=== PATIENT | male | born 1980 | race African-American/Black ===

== ENCOUNTER 2016-08-22 11:39 | Emergency (ER) | payer OTHER ==
[~2016-08-22] VITALS: Ht 162.6 cm; Wt 82.1 kg
[~2016-08-22 11:39] MED LIST: CETI10TA84 PO; MTR/600 PO
[2016-08-22 11:42] VITALS: Ht 162.6 cm; Wt 82.1 kg
--- NOTE | 2016-08-22 12:56 | EMERGENCY ROOM VISIT NOTE ---
History First contact with patient: 12:41 Chief Complaint: CHEST PAIN Stated Complaint: CHEST PAINS, LOWER BACK ACHE Nursing Triage Summary: chest pains in the center of the chest for the past couple of days. The other day I was climbing stairs and felt sob and had some chest tightness. I dont really have pain now, but the pain comes when I bend or move certian ways." History of Present Illness The patient is a 35 year old male from [facility] who presents to the Emergency Room with complaints of chest pain since Monday (5 days ago). He reports the pain has been in the center of his chest, worse with certain movements such as sleeping, getting out of the car, or reaching for something. He describes it as sharp but only coming on during certain movements (where he moves his arms and tries to pop it). He tried using Icy/Hot to make the pain better but it did not improve. He denies a family hx of early cardiac . He is an ex-smoker, and smoked about 1ppd intermittently over 2 years but has now stopped. He reports the pain is currently a 3/10. He reports he has been working out more than usual , doing bicep lifts with free weights so he stopped lifting and that didn't change the pain at all. He was admitted November 2015 for pericarditis. His pain at that time was more sudden onset but sounded similar. He reports it feels similar, but does not have the same shortness of breath he had experienced prior. Review of Systems See HPI for pertinent positives & negatives. A total of 10 systems reviewed and were otherwise negative. Past Medical/Surgical History Medical Problems: (1) Pericarditis Surgical Problems: (1) H/O umbilical hernia repair Social History Smoking Status: Former Smoker Drug Use: none Housing Status: lives with family Current/Historical Medications Scheduled Multivitamin (Multivitamin), 1 TAB PO DAILY Allergies Coded Allergies: Shrimp (Verified Allergy, Severe, THROAT SWELLING, 08/22/16) Amoxicillin (Verified Allergy, Intermediate, HIVES, 08/22/16) Physical Exam Vital Signs Date Time Temp Pulse Resp B/P Pulse Ox O2 Delivery O2 Flow Rate FiO2 08/22/16 15:30 36.6 73 18 112/77 97 08/22/16 15:29 73 18 112/77 97 Room Air 08/22/16 13:41 77 18 114/79 97 Room Air 08/22/16 13:41 98 Room Air 08/22/16 13:13 93 08/22/16 11:42 36.6 83 18 124/79 98 Room Air Physical Exam GENERAL: Awake, alert, well-appearing, in no acute distress HENT: Normocephalic, atraumatic. Oropharynx unremarkable. EYES: Normal conjunctiva. Sclera non-icteric. NECK: Supple. No nuchal rigidity. FROM. No JVD. RESPIRATORY: Clear to auscultation. CARDIAC: Regular rate, normal rhythm. Extremities warm and well perfused. Pulses equal. ABDOMEN: Soft, non-distended. No tenderness to palpation. No rebound or guarding. No masses. RECTAL: Deferred. MUSCULOSKELETAL: Chest examination reveals no tenderness. The back is symmetrical on inspection without obvious abnormality. There is no CVA tenderness to palpation. No joint edema. LOWER EXTREMITIES: Calves are equal size bilaterally and non-tender. No edema. No discoloration. NEURO: Normal sensorium. No sensory or motor deficits noted. SKIN: No rash or jaundice noted. Medical Decision & Procedures Laboratory Results 08/22/16 13:15 Red Blood Count 5.00, Mean Corpuscular Volume 87.4, Mean Corpuscular Hemoglobin 30.0, Mean Corpuscular Hemoglobin Concent 34.3, Mean Platelet Volume 10.5, Neutrophils (%) (Auto) 49.3, Lymphocytes (%) (Auto) 40.7, Monocytes (%) (Auto) 8.1, Eosinophils (%) (Auto) 1.5, Basophils (%) (Auto) 0.2, Neutrophils # (Auto) 2.87, Lymphocytes # (Auto) 2.37, Monocytes # (Auto) 0.47, Eosinophils # (Auto) 0.09, Basophils # (Auto) 0.01 08/22/16 13:15 Test 08/22/16 13:15 08/22/16 13:22 08/22/16 14:50 White Blood Count 5.82 K/uL (4.8-10.8) Red Blood Count 5.00 M/uL (4.7-6.1) Hemoglobin 15.0 g/dL (14.0-18.0) Hematocrit 43.7 % (42-52) Mean Corpuscular Volume 87.4 fL (80-100) Mean Corpuscular Hemoglobin 30.0 pg (25-34) Mean Corpuscular Hemoglobin Concent 34.3 g/dl (32-36) Platelet Count 198 K/uL (130-400) Mean Platelet Volume 10.5 fL (7.4-10.4) Neutrophils (%) (Auto) 49.3 % Lymphocytes (%) (Auto) 40.7 % Monocytes (%) (Auto) 8.1 % Eosinophils (%) (Auto) 1.5 % Basophils (%) (Auto) 0.2 % Neutrophils # (Auto) 2.87 K/uL (1.4-6.5) Lymphocytes # (Auto) 2.37 K/uL (1.2-3.4) Monocytes # (Auto) 0.47 K/uL (0.11-0.59) Eosinophils # (Auto) 0.09 K/uL (0-0.5) Basophils # (Auto) 0.01 K/uL (0-0.2) RDW Standard Deviation 39.8 fL (36.4-46.3) RDW Coefficient of Variation 12.4 % (11.5-14.5) Immature Granulocyte % (Auto) 0.2 % Immature Granulocyte # (Auto) 0.01 K/uL (0.00-0.02) Erythrocyte Sedimentation Rate 10 mm/hr (0-14) Anion Gap 11.0 mmol/L (3-11) Est Creatinine Clear Calc Drug Dose 89.8 ml/min Estimated GFR () 99.6 Estimated GFR (Non- 85.9 BUN/Creatinine Ratio 11.3 (10-20) Calcium Level 9.2 mg/dl (8.5-10.1) Total Bilirubin 1.1 mg/dl (0.2-1) Aspartate Amino Transf (AST/SGOT) 27 U/L (15-37) Alanine Aminotransferase (ALT/SGPT) 39 U/L (12-78) Alkaline Phosphatase 65 U/L (45-117) Total Creatine Kinase 514 U/L (39-308) Total Protein 7.3 gm/dl (6.4-8.2) Albumin 3.8 gm/dl (3.4-5.0) Globulin 3.5 gm/dl (2.5-4.0) Albumin/Globulin Ratio 1.1 (0.9-2) Lipase 137 U/L (73-393) Bedside D-Dimer 158 ng/mlFEU (0-450) FD-Tvv-U-Type Natriuretic Peptide < 15 pg/ml (0-450) Bedside Troponin I 0.000 ng/ml (0-0.045) Medications Administered Medications (Trade) Dose Ordered Sig/Lilly Route Start Time Stop Time Status Last Admin Dose Admin Ketorolac Tromethamine (Toradol Inj) 30 mg TODAY@1330 IV 08/22/16 13:30 08/22/16 14:30 DC 08/22/16 13:38 30 MG Ibuprofen (Motrin Tab) 600 mg NOW STAT PO 08/22/16 13:11 08/22/16 13:12 DC 08/22/16 13:38 600 MG Al Hydroxide/Mg Hydroxide (Maalox Susp) 30 ml STK-MED ONCE .ROUTE 08/22/16 15:19 08/22/16 15:21 DC 08/22/16 15:28 30 ML Lidocaine HCl (Viscous Lidocaine 2% Soln) 20 ml STK-MED ONCE .ROUTE 08/22/16 15:19 08/22/16 15:21 DC 08/22/16 15:28 10 ML Procedure CHEST ONE VIEW PORTABLE CLINICAL HISTORY: Chest pain. COMPARISON STUDY: No previous studies for comparison. FINDINGS: Lung volumes are normal. No consolidation is identified. There is no evidence of pulmonary edema. Cardiac size is normal. Mediastinal contours are normal. No pneumothorax or pleural effusion is present. IMPRESSION: No acute cardiopulmonary findings. Electronically signed by: Corey Ray M.D. 08/22/2016 1:21 PM ED Course 12:50: I evaluated the patient in Room C9. He was present with his and daughter. 1:00: I ordered a CBC, CMP, ESR, Troponin. His EKG was reviewed and similar when compared to his previous EKGs. 2:00: I reviewed the patient again. He reported the pain is different to his pericarditis admission back then, as he doesn't have any issues breathing. He reports the pain is only with outstretching his arms and demonstrated this. I reviewed his labs with him which were all unremarkable, including a POC D-Dimer , Troponin, BNP, and CBC. I will get a repeat Troponin. 2:20: His repeat Troponin was negative. He felt better. He was deemed stable for discharge and left in good condition. Medical Decision 35 yo M with history of pericarditis who reports 5 day history of central epigastric intermittent chest pain, worse with certain movements such as stretching his shoulders/arms. Differential includes musculoskeletal, [place], pleurisy, GERD, and pericarditis. He had an IV placed and labs drawn. His labs were unremarkable. His POC Troponin, D-Dimer, and BNP were all negative. He had a follow up POC Troponin 90 minutes later which was also negative. He did have a mild CK elevation (500's) but reported he had been lifting weights earlier this week. He was discharged home in good condition and advised to follow up with his PCP. Impression Primary Impression: Chest wall pain Departure Information Dispostion Home / Self-Care Condition GOOD Referrals Bib Garrido M.D. (PCP) Patient Instructions My [facility] Resident Tracking Resident Involvement: Resident Care Provided Care Provided: Adult ED
[2016-08-22] MEDS ORDERED: IBUPROFEN 600 MG TAB PO STA ×2 (12:59→13:11)
--- NOTE | 2016-08-22 13:22 | DIAGNOSTIC IMAGING REPORT ---
CHEST ONE VIEW PORTABLE CLINICAL HISTORY: Chest pain. COMPARISON STUDY: No previous studies for comparison. FINDINGS: Lung volumes are normal. No consolidation is identified. There is no evidence of pulmonary edema. Cardiac size is normal. Mediastinal contours are normal. No pneumothorax or pleural effusion is present. IMPRESSION: No acute cardiopulmonary findings. Electronically signed by: Corey Ray M.D. 08/22/2016 1:21 PM Dictated Date/Time: 08/22/2016 1:20 PM
[2016-08-22 13:26] LABS: BASO % 0.2 %; BASO ABS # 0.01 K/uL (0-0.2); COMPLETE YES; EOS % 1.5 %; HEMATOCRIT 43.7 % (42-52); IG% 0.2 %; LYMPH % 40.7 %; LYMPH ABS # 2.37 K/uL (1.2-3.4); MEAN CELL VOLUME 87.4 fL (80-100); MEAN CORPUSCULAR HGB CONC 34.3 g/dl (32-36); MEAN PLATELET VOLUME 10.5 fL (7.4-10.4); MONO % 8.1 %; NEUT % 49.3 %; PLATELET COUNT 198 K/uL (130-400); WHITE BLOOD COUNT 5.82 K/uL (4.8-10.8)
[2016-08-22] MEDS ORDERED: KETOROLAC TROMETHAMINE 30 MG/ML VIAL IV SCH (13:30)
[2016-08-22 13:41] VITALS: O2SAT 98
[2016-08-22 13:44] LABS: POINT OF CARE PRO-BNP < 15 pg/ml (0-450)
[2016-08-22 13:45] LABS: BUN/CREATININE RATIO 11.3 (10-20); CALCIUM 9.2 mg/dl (8.5-10.1); CREATININE 1.1 mg/dl (0.60-1.40); POTASSIUM 3.8 mmol/L (3.5-5.1)
[2016-08-22 13:48] LABS: ALB/GLOB RATIO 1.1 (0.9-2)
[2016-08-22] MEDS ORDERED: GI COCKTAIL PO STA (14:07)
[2016-08-22] MEDS ORDERED: ALUMINUM/MAGNESIUM SUSP 18 ML, LIDOCAINE HCL 2% VISCOUS SOLN 6 ML, BARCODE IDENTIFIER 1 EA PO STA ×2 (14:55)
[2016-08-22] MEDS ORDERED: ALUMINUM/MAGNESIUM SUSP 30 ML UDC ONE (15:19)
[2016-08-22] MEDS ORDERED: LIDOCAINE HCL 2% VISC SOLN 20 ML UDC ONE (15:19)
[2016-08-22 15:30] VITALS: BP 112/77; PULSE 73; TEMP 36.6; O2SAT 97
[2016-08-22] MEDS ORDERED: MULT-506 PO (22:49)
--- NOTE | 2016-08-23 20:04 | EMERGENCY ROOM VISIT NOTE ---
ED Visit Note First contact with patient: 12:40 Resident Physician Supervision Note: I interviewed and examined the patient. Discussed with Dr. Webb and agree with findings and plan as documented in the note. Any exceptions or clarifications are listed here: This patient was evaluated and appeared to be in no significant distress. Laboratory work was reviewed. D-dimer is negative, troponins are negative 2. Laboratory work is fairly unrevealing otherwise. EKG reveals no evidence of acute ischemic change. Patient will be discharged to follow-up with the PCP. Diagnosis: Chest wall pain Documented By: Sweta Byrne
== END 2016-08-22 15:32 | disposition home or self-care (01) ==
LOC: C.EDB 11:41
DX: R07.89 Other chest pain (principal); I31.9 Disease of pericardium, unspecified; Z87.891 Personal history of nicotine dependence; Z88.1 Allergy status to other antibiotic agents; Z91.018 Allergy to other foods; Z98.890 Other specified postprocedural states

== ENCOUNTER → 2016-12-25 | Outpatient (CLI) | payer OTHER ==
[~2016-12-25] MED LIST changes: -CETI10TA84 PO; -MTR/600 PO; +MULT-506 PO
== END | disposition home or self-care (01) ==
LOC: C.LAB 04:31
DX: Z02.83 Encounter for blood-alcohol and blood-drug test (principal)

== ENCOUNTER 2020-10-29 16:02 | Inpatient (IN) ==
[2020-10-29] MEDS: HYDROmorphone INJ 0.5 MG/0.5 ML SYR IV PRN ×4 (16:40→20:44)
[2020-10-29] MEDS ORDERED: SODIUM CHLORIDE 0.9% 500 ML IV STA (16:45)
[2020-10-29] MEDS ORDERED: ONDANSETRON INJ 2 MG/ML 2 ML VIAL IV STA (16:45)
[2020-10-29] MEDS ORDERED: SODIUM CHLORIDE 0.9% 1000ML 1,000 ML IV STA (16:45)
--- NOTE | 2020-10-29 16:47 | Emergency Department Note ---
Impression & Plan Abdominal pain, RUQ, Acute pain of right shoulder, Lesion of liver, Abnormal liver enzymes ED Provider Note INFORMANT: Patient ED PROVIDER(S): Baldemar Carl MD CHIEF COMPLAINT: Shoulder pain PLAN: Disposition: Admitted Condition: Good Outpatient prescription management: none Referral: None MEDICAL DECISION MAKING: Patient presented because of right shoulder pain and right upper quadrant abdominal pain. He has an abnormal liver and elevated liver functions on prior record review. He is pending biopsy. He had significant pain referring to the right shoulder. He had a CT scan of the chest abdomen pelvis ordered. He was given IV Dilaudid and Zofran for symptom control. On reassessment he was feeling better. He still had discomfort. The patient had an unremarkable CBC a nd chemistry panel. His LFTs were more elevated than in recent past. He underwent the CT imaging. No significant findings noted in the chest. The patient was found to have stable but very abnormal liver findings. Lymph nodes normal but unchanged. Small amount of ascites noted. On reassessment he was 12 in pain. He was given additional Dilaudid. I did consult with gastroenterology, Dr. Tapia. He recommended admission for pain control, MRCP, and for the biopsies to be completed tomorrow. Patient was in agreement with this. He had a consultation placed with Dr. Fine of internal medicine. The patient was evaluated and admitted for further management. Triage Nursing notes reviewed and agree them. Vital Signs: reviewed and remarkable for no significant abnormalities Differential diagnosis: Hemorrhage, PE, pneumonia, pancreatitis, biliary pathology, Appendicitis,infections, diverticulitis, UTI, obstruction, mesenteric ischemia, aortic pathology, inflammatory bowel disease, renal colic, PUD, hernia, volvulus, constipation, as well as other pathologies. Diagnostics interpreted by me: ECG: Rate: 97 Rhythm:Normal sinus [place]:Normal QRS:Normal ST segements:No elevation or depression Other:No PACs or PVCs Cardiac Monitoring:Cardiac monitoring ordered by me: The patient was placed on continuous cardiac monitoring and observed. It revealed a normal sinus rhythm at 100 beats per minute without ectopy or evidence of dysrhythmia. Imaging studies: CT scan of the chest abdomen pelvis reveals no evidence of pulmonary embolus. Subsegmental arteries not well visualized. There is abnormalities of the liver architecture as well as surrounding lymph node. No other acute findings noted. Refer to the EMR for further details. HPI: The patient is a 39 year old male who presents to the Emergency Room with complaints of right shoulder pain. This started at 1500 today and is sharp. The patient also notes the following associated symptoms, RUQ abdominal pain. The patient has found no relieving factors. Current pain is rated as 10/10. Patient is supposed to have a chest CT performed as well as a liver and node biopsy by CT tomorrow. Pt denies LOC, headache, fevers, chills, diaphoresis, visual changes, neck pain, chest pain, breathing difficulties, nausea, vomiting, back pain, melena, hematochezia, urinary symptoms, numbness, weakness, lymphadenopathy, rash, or other complaints. ROS: See above HPI for pertinent positives & negatives. A total of 10 systems reviewed and were otherwise negative. PAST MEDICAL HISTORY:See Below , hepatitis C PAST SURGICAL HISTORY:See Below, umbilical hernia FAMILY HISTORY:See Below SOCIAL HISTORY:See Below, employed. No tobacco HOME MEDICATIONS:See Below ALLERGIES:See Below VITALS:See Below PHYSICAL EXAMINATION: GENERAL: Awake, alert, very uncomfortable-appearing, in mild distress HENT: Normocephalic, atraumatic. Oropharynx unremarkable. EYES: Normal conjunctiva. Sclera non-icteric. NECK: Inspection normal. Non-tender. Supple. No nuchal rigidity. FROM. No masses. RESPIRATORY: Clear to auscultation. No wheezes. No rales. Normal respiratory effort. CARDIAC: Normal rate. Normal rhythm. No murmurs. No rubs. Extremities warm and well perfused. Pulses equal. No JVD. GI: Soft, non-distended. Right upper quadrant tenderness to palpation. No rebound or guarding. No masses. RECTAL: Deferred. MUSCULOSKELETAL: Atraumatic. Chest examination reveals no tenderness. The back is symmetrical on inspection without obvious abnormality. There is no CVA tenderness to palpation. No joint edema. LOWER EXTREMITIES: Calves are equal size bilaterally and non-tender. No edema. No discoloration. NEURO: Normal sensorium. No sensory or motor deficits noted. SKIN: No rash or jaundice noted. Baldemar Carl MD Past Med/Surg History Medical History GERD (gastroesophageal reflux disease) Hx of hepatitis C DX OVER 22 YEARS AGO Hyperlipidemia no medications Surgical History H/O umbilical hernia repair History of colonoscopy Family History Father Hypertension Denies family history of Ovarian cancer Prostate cancer Myocardial infarction Breast cancer Colonic polyp Social History Smoking Status: Former smoker Second Hand Exposure: No; Hx Alcohol Use: No Preferred Language: [place] Communication Ability: Effective Visual Impairment: No Limitations Hearing Ability: Normal Innovation Analyst Required: No Beliefs That Will Affect Care: None marital status: Current Living Situation: Family Current Living Situation Comment: AND 2 CHILDREN current occupational status: employed Feels Safe at Home: Yes Childhood Exposure to Second-Hand Smoke: No Dental Care, Regularly: Yes Physical Activity Frequency: Daily Seatbelt Use: always Assistive Devices: Glasses Allergies Allergies Allergy/AdvReac Type Severity Reaction Status Date / Time shrimp Allergy Severe THROAT Verified 10/27/20 10:57 SWELLING amoxicillin Allergy Intermediate HIVES Verified 10/27/20 10:57 cefuroxime [From Ceftin] Allergy Intermediate RASH/BLACK Verified 10/29/20 08:10 SPOTS ON SKIN sulfamethoxazole Allergy Intermediate RASH/BLACK Verified 10/29/20 08:10 [From Septra] SPOTS ON SKIN trimethoprim [From Septra] Allergy Intermediate RASH/BLACK Verified 10/29/20 08:10 SPOTS ON SKIN unknown antibiotic Allergy Intermediate black & Uncoded 10/29/20 08:10 blue splotches on arms Home Meds Home Medications Medication Instructions Recorded Confirmed omeprazole 40 mg PO QAM 10/23/20 10/29/20 Results & Data (ED) Vital Signs Vital Signs - 24 hr 10/29/20 16:07 10/29/20 17:30 10/29/20 17:37 Temperature 36.3 C L Temperature Source Temporal Artery Scan Pulse Rate 100 H 94 H 95 H Pulse Rate from SpO2 Sensor 94 H 95 H Respiratory Rate 16 22 Blood Pressure 129/83 121/76 Blood Pressure Mean 98 91 Pulse Oximetry 99 94 95 Oxygen Delivery Method Room Air Sepsis Recent Fever Within 48 Hours No Sepsis New/Unexplained Change in Mental Status N/A Sepsis Action Taken by Nursing No Action Required 10/29/20 18:00 10/29/20 18:01 10/29/20 18:30 Temperature Temperature Source Pulse Rate 100 H 101 H 102 H Pulse Rate from SpO2 Sensor 100 H 102 H 100 H Respiratory Rate 20 19 18 Blood Pressure 122/74 108/65 Blood Pressure Mean 90 79 Pulse Oximetry 96 94 94 Oxygen Delivery Method Sepsis Recent Fever Within 48 Hours Sepsis New/Unexplained Change in Mental Status Sepsis Action Taken by Nursing 10/29/20 18:31 10/29/20 19:00 10/29/20 19:01 Temperature Temperature Source Pulse Rate 103 H 102 H 103 H Pulse Rate from SpO2 Sensor 103 H 102 H 102 H Respiratory Rate 16 18 18 Blood Pressure 113/64 Blood Pressure Mean 80 Pulse Oximetry 93 95 94 Oxygen Delivery Method Sepsis Recent Fever Within 48 Hours Sepsis New/Unexplained Change in Mental Status Sepsis Action Taken by Nursing 10/29/20 19:30 10/29/20 19:31 10/29/20 20:00 Temperature Temperature Source Pulse Rate 100 H 102 H 105 H Pulse Rate from SpO2 Sensor 100 H 102 H 107 H Respiratory Rate 5 L 1 L 18 Blood Pressure 118/75 119/75 Blood Pressure Mean 89 89 Pulse Oximetry 94 92 93 Oxygen Delivery Method Sepsis Recent Fever Within 48 Hours Sepsis New/Unexplained Change in Mental Status Sepsis Action Taken by Nursing 10/29/20 20:01 10/29/20 20:30 10/29/20 20:31 Temperature Temperature Source Pulse Rate 105 H 107 H 104 H Pulse Rate from SpO2 Sensor 105 H 106 H 104 H Respiratory Rate 17 13 3 L Blood Pressure 112/76 Blood Pressure Mean 88 Pulse Oximetry 93 95 95 Oxygen Delivery Method Sepsis Recent Fever Within 48 Hours Sepsis New/Unexplained Change in Mental Status Sepsis Action Taken by Nursing 10/29/20 21:00 10/29/20 21:01 10/29/20 21:30 Temperature Temperature Source Pulse Rate 103 H 105 H 103 H Pulse Rate from SpO2 Sensor 104 H 105 H 102 H Respiratory Rate 31 H 34 H 17 Blood Pressure 122/74 117/74 Blood Pressure Mean 90 88 Pulse Oximetry 92 92 95 Oxygen Delivery Method Sepsis Recent Fever Within 48 Hours Sepsis New/Unexplained Change in Mental Status Sepsis Action Taken by Nursing 10/29/20 21:31 10/29/20 22:00 10/29/20 22:01 Temperature Temperature Source Pulse Rate 107 H 103 H 100 H Pulse Rate from SpO2 Sensor 106 H 104 H 101 H Respiratory Rate 14 32 H 22 Blood Pressure 115/75 Blood Pressure Mean 88 Pulse Oximetry 96 93 93 Oxygen Delivery Method Sepsis Recent Fever Within 48 Hours Sepsis New/Unexplained Change in Mental Status Sepsis Action Taken by Nursing Laboratory Data Result diagrams: 10/29/20 17:00 10/29/20 17:00 Lab Results 10/29/20 10/29/20 10/29/20 Range/Units 17:00 17:00 20:40 WBC 8.86 (4.8-10.8) K/uL RBC 4.98 (4.7-6.1) M/uL Hgb 13.8 L (14.0-18.0) g/dL Hct 42.0 (42-52) % MCV 84.3 (80-100) fL MCH 27.7 (25-34) pg MCHC 32.9 (32-36) g/dL RDW Std Deviation 44.7 (36.4-46.3) fL RDW Coeff of Jw 14.5 (11.5-14.5) % Plt Count 428 H (130-400) K/uL MPV 10.2 (7.4-10.4) fL Immature Gran % (Auto) 0.2 % Neut % (Auto) 68.6 % Lymph % (Auto) 19.0 % [place] % (Auto) 10.8 % Eos % (Auto) 1.2 % Baso % (Auto) 0.2 % Neut # (Auto) 6.07 (1.4-6.5) K/uL Lymph # (Auto) 1.68 (1.2-3.4) K/uL [place] # (Auto) 0.96 H (0.11-0.59) K/uL Eos # (Auto) 0.11 (0-0.5) K/uL Baso # (Auto) 0.02 (0-0.2) K/uL Immature Gran # (Auto) 0.02 (0.00-0.02) K/uL Sodium 138 (136-145) mmol/L Potassium 3.6 (3.5-5.1) mmol/L Chloride 103 (98-107) mmol/L Carbon Dioxide 27 (21-32) mmol/L Anion Gap 8.0 (3-11) BUN 11 (7-18) mg/dl Creatinine 1.04 (0.6-1.4) mg/dl Est Cr Clr Drug Dosing 88.3 ml/min Est GFR ( Amer) 103.6 Est GFR (Non-Af Amer) 89.4 BUN/Creatinine Ratio 10.7 (10-20) Glucose 79 (70-99) mg/dl Calcium 9.5 (8.5-10.1) mg/dl Total Bilirubin 1.6 H (0.2-1) mg/dl AST 808 H (15-37) U/L ALT 180 H (12-78) U/L Alkaline Phosphatase 330 H (45-117) U/L Troponin I < 0.015 (0-0.045) ng/ml Total Protein 7.5 (6.4-8.2) gm/dl Albumin 3.0 L (3.4-5.0) gm/dl Globulin 4.5 H (2.5-4.0) gm/dl Albumin/Globulin Ratio 0.7 L (0.9-2) Lipase 95 (73-393) U/L COVID-19 Eval Order CovFluRsv at [facility] SARS-CoV-2 (PCR) (Negative) Influenza Type A (PCR) (Neg) Influenza Type B (PCR) (Neg) RSV (RT-PCR) (Neg) 10/29/20 Range/Units 20:40 WBC (4.8-10.8) K/uL RBC (4.7-6.1) M/uL Hgb (14.0-18.0) g/dL Hct (42-52) % MCV (80-100) fL MCH (25-34) pg MCHC (32-36) g/dL RDW Std Deviation (36.4-46.3) fL RDW Coeff of Jw (11.5-14.5) % Plt Count (130-400) K/uL MPV (7.4-10.4) fL Immature Gran % (Auto) % Neut % (Auto) % Lymph % (Auto) % [place] % (Auto) % Eos % (Auto) % Baso % (Auto) % Neut # (Auto) (1.4-6.5) K/uL Lymph # (Auto) (1.2-3.4) K/uL [place] # (Auto) (0.11-0.59) K/uL Eos # (Auto) (0-0.5) K/uL Baso # (Auto) (0-0.2) K/uL Immature Gran # (Auto) (0.00-0.02) K/uL Sodium (136-145) mmol/L Potassium (3.5-5.1) mmol/L Chloride (98-107) mmol/L Carbon Dioxide (21-32) mmol/L Anion Gap (3-11) BUN (7-18) mg/dl Creatinine (0.6-1.4) mg/dl Est Cr Clr Drug Dosing ml/min Est GFR ( Amer) Est GFR (Non-Af Amer) BUN/Creatinine Ratio (10-20) Glucose (70-99) mg/dl Calcium (8.5-10.1) mg/dl Total Bilirubin (0.2-1) mg/dl AST (15-37) U/L ALT (12-78) U/L Alkaline Phosphatase (45-117) U/L Troponin I (0-0.045) ng/ml Total Protein (6.4-8.2) gm/dl Albumin (3.4-5.0) gm/dl Globulin (2.5-4.0) gm/dl Albumin/Globulin Ratio (0.9-2) Lipase (73-393) U/L COVID-19 Eval Order SARS-CoV-2 (PCR) NEGATIVE (Negative) Influenza Type A (PCR) Negative (Neg) Influenza Type B (PCR) Negative (Neg) RSV (RT-PCR) Negative (Neg) Administered Medications Hydromorphone HCl (Hydromorphone Inj 0.5 Mg/0.5 Ml Syr) 0.5 mg IV Q15M PRN PRN Reason: Pain Stop: 11/12/20 16:44 Last Admin: 10/29/20 20:44 Dose: 0.5 mg Documented by: [id number] Admin: 10/29/20 19:31 Dose: 0.5 mg Documented by: [id number] Admin: 10/29/20 17:41 Dose: 0.5 mg Documented by: [id number] Admin: 10/29/20 16:40 Dose: 0.5 mg Documented by: [id number] Sodium Chloride (Nss 1000ml) 1,000 mls @ 125 mls/hr IV .Q8H STA Stop: 10/30/20 00:44 Last Infusion: 10/29/20 19:23 Dose: 0 mls/hr Documented by: [id number] Admin: 10/29/20 16:55 Dose: 125 mls/hr Documented by: [id number] Discontinued Medications Sodium Chloride (Nss) 500 mls @ 999 mls/hr IV .Q31M STA Stop: 10/29/20 17:15 Last Infusion: 10/29/20 19:22 Dose: 0 mls/hr Documented by: [id number] Admin: 10/29/20 17:40 Dose: 999 mls/hr Documented by: [id number] Ioversol (Optiray 350 500ml) 120 ml IV ONCE ONE Stop: 10/29/20 17:51 Last Admin: 10/29/20 17:50 Dose: 120 ml Documented by: [id number] Ondansetron HCl (Ondansetron Inj 2 Mg/Ml 2 Ml Vial) 4 mg IV NOW STA Stop: 10/29/20 16:46 Last Admin: 10/29/20 17:40 Dose: 4 mg Documented by: [id number] Imaging Data Radiologist's Impression: Chest X-Ray 10/29/20 16:48 SINGLE VIEW CHEST CLINICAL HISTORY: Atypical chest pain. Right upper quadrant abdominal pain. FINDINGS: An AP, portable, upright chest radiograph is compared to study dated 11/02/2018. The cardiomediastinal silhouette is unremarkable. The lungs and pleural spaces are clear. No pneumothorax is seen. The bony thorax is grossly intact. IMPRESSION: No active disease in the chest. ACT 112: Negative or not required by law. Electronically signed by: Harsh Viveros M.D. 10/29/2020 5:06 PM Abdomen/Pelvis CT 10/29/20 17:12 CT ANGIOGRAM OF THE CHEST; CT SCAN OF THE ABDOMEN AND PELVIS WITH IV CONTRAST CLINICAL HISTORY: Atypical chest pain. Right upper quadrant abdominal pain. COMPARISON STUDY: Chest x-ray dated 10/29/2020. Abdominal CT dated 10/21/2020. TECHNIQUE: Following the IV administration of 120 of Optiray 350, CT angiogram of the chest is performed from the upper abdomen to the thoracic inlet utilizing the pulmonary embolus protocol. Images are reviewed in the axial, sagittal, coronal planes. 3-D MIPS images are created and assessed. Subsequently, CT scan of the abdomen and pelvis was performed from the lung bases to the proximal femora. Images are reviewed in the axial, sagittal, and coronal planes. IV contrast was administered without complication. A dose lowering technique was utilized adhering to the principles of ALARA. There is suboptimal contrast opacification of the pulmonary arteries, as well as motion artifact.. CT DOSE: 621.49 mGy.cm FINDINGS: CHEST: Thyroid: Imaged portions of the thyroid gland are normal in size and attenuation. Thoracic aorta: The thoracic aorta is normal in caliber and demonstrates standard 3-vessel arch anatomy. No dissection is seen. Pulmonary vasculature: The pulmonary trunk is normal in caliber. There are no filling defects identified in the main or lobar pulmonary arteries to indicate pulmonary embolus. The segmental and subsegmental branches are not well assessed. Heart: The heart is normal in size and configuration, and without pericardial effusion. Lungs and pleural spaces: Evaluation of the lung parenchyma is degraded by motion artifact. No airspace consolidation or pleural effusion is identified. There is mild dependent atelectasis. The trachea and central airways are clear. Mediastinum: There is no mediastinal lymphadenopathy. [place]: Clear. Axillae: There is no axillary lymphadenopathy. Bony thorax: No lytic or blastic lesions are identified. ABDOMEN AND PELVIS: Liver: The contrast-enhanced liver is mildly enlarged measuring over 18 cm in length. The liver is markedly heterogeneous in attenuation there is nodularity of the hepatic surface contour. The liver is infiltrated by numerous low- attenuation mass lesions. There is no arterial hypervascularity. Confluent mass lesions in the left lobe measure up to 14 cm in aggregate dimension. Numerous additional smaller lesions are seen throughout both lobes. There is no intrahe patic biliary ductal dilatation. Hepatic veins and portal veins are patent. Gallbladder: Unremarkable. Spleen: Normal in size and attenuation. Pancreas: Unremarkable. Adrenal glands: Unremarkable. Kidneys: The contrast enhanced kidneys are normal in size and without hyd ronephrosis. The kidneys enhance symmetrically. Abdominal vasculature: The abdominal aorta is normal in course and caliber. Bowel: There is no bowel obstruction. The appendix is normal as visualized. Peritoneum: No intraperitoneal free air is identified. There is trace perihepatic and perisplenic ascites. There is also a small volume of free fluid in the pelvis. Lymphadenopathy: There is upper abdominal lymphadenopathy. A celiac node on image #128 measures 4.4 x 2.3 cm. A peripancreatic node on image #154 measures 3.0 x 1.7 cm. No retroperitoneal, mesenteric, pelvic sidewall, or inguinal a denopathy is identified. Pelvic viscera: The bladder, prostate, and seminal vesicles are normal as visualized. Skeletal structures: No lytic or blastic lesions are seen. IMPRESSION: 1. There is suboptimal contrast opacification of the pulmonary arteries. 2. There is no evidence of central pulmonary embolus in the main or lobar pulmonary arteries. The segmental and subsegmental branches are not adequately assessed. 3. There is no airspace consolidation or pleural effusion. 4. Findings of diffuse hepatic metastatic disease have not significantly changed from 10/21/2020. 5. The liver is mildly enlarged and markedly heterogeneous with nodularity of the surface contour. This likely represents pseudocirrhotic change related to neoplasm. 6. Upper abdominal lymphadenopathy is unchanged and consistent with matthias metastasis. 7. Small volume abdominopelvic ascites. 8. Additional findings as above. ACT 112: Negative or not required by law. Electronically signed by: Harsh Viveros M.D. 10/29/2020 6:20 PM Chest CTA 10/29/20 17:12 CT ANGIOGRAM OF THE CHEST; CT SCAN OF THE ABDOMEN AND PELVIS WITH IV CONTRAST CLINICAL HISTORY: Atypical chest pain. Right upper quadrant abdominal pain. COMPARISON STUDY: Chest x-ray dated 10/29/2020. Abdominal CT dated 10/21/2020. TECHNIQUE: Following the IV administration of 120 of Optiray 350, CT angiogram of the chest is performed from the upper abdomen to the thoracic inlet utilizing the pulmonary embolus protocol. Images are reviewed in the axial, sagittal, coronal planes. 3-D MIPS images are created and assessed. Subsequently, CT scan of the abdomen and pelvis was performed from the lung bases to the proximal femora. Images are reviewed in the axial, sagittal, and coronal planes. IV contr ast was administered without complication. A dose lowering technique was utilized adhering to the principles of ALARA. There is suboptimal contrast opacification of the pulmonary arteries, as well as motion artifact.. CT DOSE: 621.49 mGy.cm FINDINGS: CHEST: Thyroid: Imaged portions of the thyroid gland are normal in size and attenuation. Thoracic aorta: The thoracic aorta is normal in caliber and demonstrates standard 3-vessel arch anatomy. No dissection is seen. Pulmonary vasculature: The pulmonary trunk is normal in caliber. There are no filling defects identified in the main or lobar pulmonary arteries to indicate pulmonary embolus. The segmental and subsegmental branches are not well assessed. Heart: The heart is normal in size and configuration, and without pericardial effusion. Lungs and pleural spaces: Evaluation of the lung parenchyma is degraded by motion artifact. No airspace consolidation or pleural effusion is identified. There is mild dependent atelectasis. The trachea and central airways are clear. Mediastinum: There is no mediastinal lymphadenopathy. [place]: Clear. Axillae: There is no axillary lymphadenopathy. Bony thorax: No lytic or blastic lesions are identified. ABDOMEN AND PELVIS: Liver: The contrast-enhanced liver is mildly enlarged measuring over 18 cm in length. The liver is markedly heterogeneous in attenuation there is nodularity of the hepatic surface contour. The liver is infiltrated by numerous low- attenuation mass lesions. There is no arterial hypervascularity. Confluent mass lesions in the left lobe measure up to 14 cm in aggregate dimension. Numerous additional smaller lesions are seen throughout both lobes. There is no intrahepatic biliary ductal dilatation. Hepatic veins and portal veins are patent. Gallbladder: Unremarkable. Spleen: Normal in size and attenuation. Pancreas: Unremarkable. Adrenal glands: Unremarkable. Kidneys: The contrast enhanced kidneys are normal in size and without hydronephrosis. The kidneys enhance symmetrically. Abdominal vasculature: The abdominal aorta is normal in course and caliber. Bowel: There is no bowel obstruction. The appendix is normal as visualized. Peritoneum: No intraperitoneal free air is identified. There is trace perihepatic and perisplenic ascites. There is also a small volume of free fluid in the pelvis. Lymphadenopathy: There is upper abdominal lymphadenopathy. A celiac node on image #128 measures 4.4 x 2.3 cm. A peripancreatic node on image #154 measures 3.0 x 1.7 cm. No retroperitoneal, mesenteric, pelvic sidewall, or inguinal adenopathy is identified. Pelvic viscera: The bladder, prostate, and seminal vesicles are normal as visualized. Skeletal structures: No lytic or blastic lesions are seen. IMPRESSION: 1. There is suboptimal contrast opacification of the pulmonary arteries. 2. There is no evidence of central pulmonary embolus in the main or lobar pulmonary arteries. The segmental and subsegmental branches are not adequately assessed. 3. There is no airspace consolidation or pleural effusion. 4. Findings of diffuse hepatic metastatic disease have not significantly changed from 10/21/2020. 5. The liver is mildly enlarged and markedly heterogeneous with nodularity of the surface contour. This likely represents pseudocirrhotic change related to neoplasm. 6. Upper abdominal lymphadenopathy is unchanged and consistent with matthias metastasis. 7. Small volume abdominopelvic ascites. 8. Additional findings as above. ACT 112: Negative or not required by law. Electronically signed by: Harsh Viveros M.D. 10/29/2020 6:20 PM Discharge Plan Visit Data Chief Complaint: Shoulder Pain Stated Complaint: SHARP PAIN IN SIDE, SHOULDER & NECK ED Provider: Baldemar Carl Discharge Problem: Abdominal pain, RUQ, Acute pain of right shoulder, Lesion of liver, Abnormal liver enzymes Forms Stand Alone Forms: [facility] [employer] Prescriptions Prescriptions: No Action omeprazole 40 mg capsule,delayed release(DR/EC) 40 mg PO QAM RF: 0
--- NOTE | 2020-10-29 17:07 | XRay Report ---
SINGLE VIEW CHEST CLINICAL HISTORY: Atypical chest pain. Right upper quadrant abdominal pain. FINDINGS: An AP, portable, upright chest radiograph is compared to study dated 11/02/2018. The cardiom ediastinal silhouette is unremarkable. The lungs and pleural spaces are clear. No pneumothorax is see n. The bony thorax is grossly intact. IMPRESSION: No active disease in the chest. ACT 112: Negative or not required by law. Electronically signed by: Harsh Viveros M.D. 10/29/2020 5:06 PM
[2020-10-29 17:11] LABS: Basophils # (auto) 0.02 K/uL (0-0.2); Basophils % (auto) 0.2 %; Eosinophils # (auto) 0.11 K/uL (0-0.5); Eosinophils % (auto) 1.2 %; Hemoglobin 13.8 g/dL (14.0-18.0); Immature Granulocytes # (auto) 0.02 K/uL (0.00-0.02); Immature Granulocytes % (auto) 0.2 %; Lymphocytes # (auto) 1.68 K/uL (1.2-3.4); Mean Corpuscular Hemoglobin 27.7 pg (25-34); Mean Corpuscular Hgb Conc 32.9 g/dL (32-36); Mean Corpuscular Volume 84.3 fL (80-100); Mean Platelet Volume 10.2 fL (7.4-10.4); Monocytes # (auto) 0.96 K/uL (0.11-0.59); Monocytes % (auto) 10.8 %; Neutrophils # (auto) 6.07 K/uL (1.4-6.5); Neutrophils % (auto) 68.6 %; Platelet Count 428 K/uL (130-400); RDW Coefficient of Variation 14.5 % (11.5-14.5); RDW Standard Deviation 44.7 fL (36.4-46.3); Red Blood Count 4.98 M/uL (4.7-6.1); White Blood Count 8.86 K/uL (4.8-10.8)
[2020-10-29 17:35] LABS: Alanine Aminotransferase 180 U/L (12-78); Aspartate Aminotransferase 808 U/L (15-37); BUN Creatinine Ratio 10.7 (10-20); Blood Urea Nitrogen 11 mg/dl (7-18); Calcium 9.5 mg/dl (8.5-10.1); Carbon Dioxide 27 mmol/L (21-32); Chloride 103 mmol/L (98-107); Creatinine Clr Calc Pharmacy 88.3 ml/min; Est GFR (African American) 103.6; Est GFR (Non-African American) 89.4; Glucose 79 mg/dl (70-99); Lipase 95 U/L (73-393); Potassium 3.6 mmol/L (3.5-5.1); Sodium 138 mmol/L (136-145)
[2020-10-29 17:40] LABS: Albumin Globulin Ratio 0.7 (0.9-2); Alkaline Phosphatase 330 U/L (45-117); Bilirubin,Total 1.6 mg/dl (0.2-1); Globulin 4.5 gm/dl (2.5-4.0); Total Protein 7.5 gm/dl (6.4-8.2); Troponin I < 0.015 ng/ml (0-0.045)
[2020-10-29] MEDS ORDERED: OPTIRAY 350 500ml IV ONE (17:50)
--- NOTE | 2020-10-29 18:22 | CT Scan Report ---
CT ANGIOGRAM OF THE CHEST; CT SCAN OF THE ABDOMEN AND PELVIS WITH IV CONTRAST CLINICAL HISTORY: Atypical chest pain. Right upper quadrant abdominal pain. COMPARISON STUDY: Chest x-ray dated 10/29/2020. Abdominal CT dated 10/21/2020. TECHNIQUE: Following the IV administration of 120 of Optiray 350, CT angiogram of the chest is perfor med from the upper abdomen to the thoracic inlet utilizing the pulmonary embolus protocol. Images are reviewed in the axial, sagittal, coronal planes. 3-D MIPS images are created and assessed. Subsequen tly, CT scan of the abdomen and pelvis was performed from the lung bases to the proximal femora. Imag es are reviewed in the axial, sagittal, and coronal planes. IV contrast was administered without comp lication. A dose lowering technique was utilized adhering to the principles of ALARA. There is subopt imal contrast opacification of the pulmonary arteries, as well as motion artifact.. CT DOSE: 621.49 mGy.cm FINDINGS: CHEST: Thyroid: Imaged portions of the thyroid gland are normal in size and attenuation. Thoracic aorta: The thoracic aorta is normal in caliber and demonstrates standard 3-vessel arch anato my. No dissection is seen. Pulmonary vasculature: The pulmonary trunk is normal in caliber. There are no filling defects identif ied in the main or lobar pulmonary arteries to indicate pulmonary embolus. The segmental and subsegme ntal branches are not well assessed. Heart: The heart is normal in size and configuration, and without pericardial effusion. Lungs and pleural spaces: Evaluation of the lung parenchyma is degraded by motion artifact. No airspa ce consolidation or pleural effusion is identified. There is mild dependent atelectasis. The trachea and central airways are clear. Mediastinum: There is no mediastinal lymphadenopathy. Leidy: Clear. Axillae: There is no axillary lymphadenopathy. Bony thorax: No lytic or blastic lesions are identified. ABDOMEN AND PELVIS: Liver: The contrast-enhanced liver is mildly enlarged measuring over 18 cm in length. The liver is ma rkedly heterogeneous in attenuation there is nodularity of the hepatic surface contour. The liver is infiltrated by numerous low-attenuation mass lesions. There is no arterial hypervascularity. Confluen t mass lesions in the left lobe measure up to 14 cm in aggregate dimension. Numerous additional small er lesions are seen throughout both lobes. There is no intrahepatic biliary ductal dilatation. Hepati c veins and portal veins are patent. Gallbladder: Unremarkable. Spleen: Normal in size and attenuation. Pancreas: Unremarkable. Adrenal glands: Unremarkable. Kidneys: The contrast enhanced kidneys are normal in size and without hydronephrosis. The kidneys enh ance symmetrically. Abdominal vasculature: The abdominal aorta is normal in course and caliber. Bowel: There is no bowel obstruction. The appendix is normal as visualized. Peritoneum: No intraperitoneal free air is identified. There is trace perihepatic and perisplenic asc ites. There is also a small volume of free fluid in the pelvis. Lymphadenopathy: There is upper abdominal lymphadenopathy. A celiac node on image #128 measures 4.4 x 2.3 cm. A peripancreatic node on image #154 measures 3.0 x 1.7 cm. No retroperitoneal, mesenteric, p elvic sidewall, or inguinal adenopathy is identified. Pelvic viscera: The bladder, prostate, and seminal vesicles are normal as visualized. Skeletal structures: No lytic or blastic lesions are seen. IMPRESSION: 1. There is suboptimal contrast opacification of the pulmonary arteries. 2. There is no evidence of central pulmonary embolus in the main or lobar pulmonary arteries. The seg mental and subsegmental branches are not adequately assessed. 3. There is no airspace consolidation or pleural effusion. 4. Findings of diffuse hepatic metastatic disease have not significantly changed from 10/21/2020. 5. The liver is mildly enlarged and markedly heterogeneous with nodularity of the surface contour. Th is likely represents pseudocirrhotic change related to neoplasm. 6. Upper abdominal lymphadenopathy is unchanged and consistent with matthias metastasis. 7. Small volume abdominopelvic ascites. 8. Additional findings as above. ACT 112: Negative or not required by law. Electronically signed by: Harsh Viveros M.D. 10/29/2020 6:20 PM
[2020-10-29 21:46] LABS: Influenza A virus by PCR Negative (Neg); Influenza B virus by PCR Negative (Neg); RSV by PCR Negative (Neg); SARS CoV2 RNA(COVID-19) InHosp NEGATIVE (Negative)
--- NOTE | 2020-10-29 22:53 | History & Physical Report ---
Date of Service October 29, 2020 Assessment & Plan (1) Acute pain of right shoulder: 39 yo male with diffuse hepatic lesions most concerning for malignant process with metastases. Patient is in the midst of diagnostic workup and staging. Presents to the ER today with worsening RUQ and right shoulder/neck pain. Imaging redemonstrates hepatic lesions with matthias involvement. CTA was negative for PE, however, study suboptimal. Suspect right shoulder pain is referred from expanding liver lesions -Admit to medical floor -Dilaudid 0.5mg IV q 2 hours - can increase as needed to optimize pain control -Colace PRN Present on Admission?: Yes (2) Lesion of liver: Concern for malignancy with lymph node involvement. ?Primary HCC vs Germ cell primary vs metastatic lesions. Patient has no family history of malignancy and no identifiable risk factors for malignancy (possible history of HCV discussed below). Patient endorses frequent headache mostly at the end of the day. -Check testicular ultrasound as recommended by Oncology -Check hCG with AM labs -Check LDH with AM labs -Check MRI brain -Will keep patient NPO after midnight and hold chemoprophylaxis for DVT for possible liver biopsy in AM. He was to have this performed tomorrow with Dr. Patton in the outpatient setting. Hopefully will be able to complete this study inpatient -Check MRCP -Check INR with AM labs Present on Admission?: Yes (3) Hx of hepatitis C: Patient reports that appx 23 years ago his Aunt was in a bad accident and family members were asked to donate blood. He was told at that time that he had HCV. He reports drinking dandelion tea and using Milk Thistle supplements and having negative followup testing Patient had an acute hepatitis panel performed on 10/16/20 which is negative Present on Admission?: Yes (4) Abnormal liver enzymes: Patient with worsening LFTs, mixed hepatocellular and obstructive pattern. Concern for progression of lesions. He is afebrile, HD stable, non-toxic in appearance. No leukocytosis to suggest infectious process. -Check INR -Repeat LFTs in AM -Check MRCP as above Present on Admission?: Yes (5) GERD (gastroesophageal reflux disease): Chronic -Hold Omeprazole for now F/E/N - Heplock. Electrolytes WNL. NPO for now Ppx - SCDs. Code - Full Dispo - Admit to medical Present on Admission?: Yes History of Present Illness Chief Complaint: Right shoulder pain, abdominal pain Primary Care Provider: Vasquez Che MD Mr. Bray is a 39yo male presenting with right shoulder pain and RUQ abdominal discomfort. Patient was born and raised in [facility] - lived in an urban environment. He has been living in the for over 10 years. Until recently he had been in very good health, working out frequently and training for a marathon. In August 2020 he developed upper abdominal pain and fullness as well as gas and bloating. He had an abdominal ultrasound and liver studies ordered by his PCP on 10/13/20 which was suggestive of malignant lesions of the liver, possibly representing metastatic disease. He had a colonoscopy performed on 10/28/20 which was normal. He was evaluated by Dr. Matos from ematology/Oncology on 10/28/20. Patient was scheduled to have upper GI EUS with biopsy of liver lesion and nodes performed tomorrow outpatient. He presents today to [facility] ER with complaint of severe right shoulder and neck discomfort as well as RUQ and right posterior rib discomfort. Pain is pleuritic in nature and began acutely around 15:00 while the patient was at work. He denies chest pain, palpitations, SOB although he does endorse short/shallow breathing due to pain. He has ongoing abdominal pain but denies nausea/vomiting/diarrhea or constipation. He endorses poor appetite as well as significant weight loss of appx 35# over the past month. He also reports a frequent headache that occurs in the evening. He does not wake with a ORTEGA and denies seizure, numbness/tingling/weakness or other focal deficits. Abd US 10/16/20: Lobular and heterogenous liver which may contain scattered lesions. Three is also mild periportal LAD. Labs 10/16/20: GQM=481, YF=503. EBV Capsig IgG > 750 and EBV Nuclear Antigen Ab [address] CT Abdomen 10/21/20: Liver is infiltrated by numerous large mass lesions. Should be considered neoplasm until proven otherwise, and metastatic disease is favored over a primary hepatic neoplasm. Colorectal carcinoma is a strong consideration. Enlarged and centrally necrotic upper abdominal lymph nodes consistent with metastatic disease. Labs 10/21/20: CEA <0.5 AFP = [id number] Colonoscopy 10/27/20: Normal terminal ileum and colon. No polyps or masses. Non-bleeding internal hemorrhoids. ER Course: Dilaudid 0.5mg IV x 4. Zofran 4mg IV, NSS x 1500mL Allergies Allergy/AdvReac Type Severity Reaction Status Date / Time shrimp Allergy Severe THROAT Verified 10/27/20 10:57 SWELLING amoxicillin Allergy Intermediate HIVES Verified 10/27/20 10:57 cefuroxime [From Ceftin] Allergy Intermediate RASH/BLACK Verified 10/29/20 08:10 SPOTS ON SKIN sulfamethoxazole Allergy Intermediate RASH/BLACK Verified 10/29/20 08:10 [From Septra] SPOTS ON SKIN trimethoprim [From Septra] Allergy Intermediate RASH/BLACK Verified 10/29/20 08:10 SPOTS ON SKIN unknown antibiotic Allergy Intermediate black & Uncoded 10/29/20 08:10 blue splotches on arms Home Medications Medication Instructions Recorded Confirmed Type omeprazole 40 mg PO QA 10/23/20 10/29/20 History Past Med/Surg History Medical History GERD (gastroesophageal reflux disease) Hx of hepatitis C DX OVER 22 YEARS AGO Hyperlipidemia no medications Surgical History H/O umbilical hernia repair History of colonoscopy Family History Father Hypertension Denies family history of Ovarian cancer Prostate cancer Myocardial infarction Breast cancer Colonic polyp Social History Smoking Status: Former smoker Second Hand Exposure: No; Hx Alcohol Use: No Preferred Language: Barbadian Communication Ability: Effective Visual Impairment: No Limitations Hearing Ability: Normal Fire Medic Required: No Beliefs That Will Affect Care: None marital status: Current Living Situation: Family Current Living Situation Comment: AND 2 CHILDREN current occupational status: employed Feels Safe at Home: Yes Childhood Exposure to Second-Hand Smoke: No Dental Care, Regularly: Yes Physical Activity Frequency: Daily Seatbelt Use: always Assistive Devices: Glasses Review of Systems Review of Systems: All systems reviewed & are unremarkable except as noted in HPI & below Physical Exam Physical Exam: General: patient resting, slightly uncomfortable due to RUQ pain, NAD, non-toxic in appearance, AA&O x 4 Skin: warm, dry, intact, no rashes or lesions HEENT: NC/AT, PERRL, EOMI, anicteric sclera, conjunctiva without injection, external ear normal to inspection and nontender, nares patent, moist mucus membranes, dentition intact, no oropharyngeal lesions, neck supple, trachea midline, no LAD, no thyromegaly, no JVD Heart: +S1/S2, regular, no m/r/g Lungs: equal air entry bilaterally, no rales/rhonchi/wheezes Abd: +BS, soft, tender in RUQ, palpable liver margin, enlarged to percussion Ext: warm, 2+ pulses in UE/LE bilaterally, no clubbing/cyanosis or edema Neuro: nonfocal, patient AA&O x 4, speech intact, no facial droop, moving all extremities on command with equal strength 5/5 Results & Data Results & Data ([facility]) Vital Signs (Past 12 Hours) Vital Signs Temp Pulse Resp BP Pulse Ox 10/29/20 22:40 98 H 18 95 10/29/20 22:31 97 H 13 95 10/29/20 22:30 101 H 17 131/71 97 10/29/20 22:20 109 H 18 96 10/29/20 22:10 99 H 31 H 92 10/29/20 22:01 100 H 22 93 10/29/20 22:00 103 H 32 H 115/75 93 10/29/20 21:31 107 H 14 96 10/29/20 21:30 103 H 17 117/74 95 10/29/20 21:01 105 H 34 H 92 10/29/20 21:00 103 H 31 H 122/74 92 10/29/20 20:31 104 H 3 L 95 10/29/20 20:30 107 H 13 112/76 95 10/29/20 20:01 105 H 17 93 10/29/20 20:00 105 H 18 119/75 93 10/29/20 19:31 102 H 1 L 92 10/29/20 19:30 100 H 5 L 118/75 94 10/29/20 19:01 103 H 18 94 10/29/20 19:00 102 H 18 113/64 95 10/29/20 18:31 103 H 16 93 10/29/20 18:30 102 H 18 108/65 94 10/29/20 18:01 101 H 19 94 10/29/20 18:00 100 H 20 122/74 96 10/29/20 17:37 95 H 22 95 10/29/20 17:30 94 H 20 121/76 94 10/29/20 16:07 36.3 C L 100 H 16 129/83 99 Laboratory Results Lab Results 10/29/20 10/29/20 10/29/20 Range/Units 17:00 17:00 20:40 WBC 8.86 (4.8-10.8) K/uL RBC 4.98 (4.7-6.1) M/uL Hgb 13.8 L (14.0-18.0) g/dL Hct 42.0 (42-52) % MCV 84.3 (80-100) fL MCH 27.7 (25-34) pg MCHC 32.9 (32-36) g/dL RDW Std Deviation 44.7 (36.4-46.3) fL RDW Coeff of Jw 14.5 (11.5-14.5) % Plt Count 428 H (130-400) K/uL MPV 10.2 (7.4-10.4) fL Immature Gran % (Auto) 0.2 % Neut % (Auto) 68.6 % Lymph % (Auto) 19.0 % [place] % (Auto) 10.8 % Eos % (Auto) 1.2 % Baso % (Auto) 0.2 % Neut # (Auto) 6.07 (1.4-6.5) K/uL Lymph # (Auto) 1.68 (1.2-3.4) K/uL [place] # (Auto) 0.96 H (0.11-0.59) K/uL Eos # (Auto) 0.11 (0-0.5) K/uL Baso # (Auto) 0.02 (0-0.2) K/uL Immature Gran # (Auto) 0.02 (0.00-0.02) K/uL Sodium 138 (136-145) mmol/L Potassium 3.6 (3.5-5.1) mmol/L Chloride 103 (98-107) mmol/L Carbon Dioxide 27 (21-32) mmol/L Anion Gap 8.0 (3-11) BUN 11 (7-18) mg/dl Creatinine 1.04 (0.6-1.4) mg/dl Est Cr Clr Drug Dosing 88.3 ml/min Est GFR ( Amer) 103.6 Est GFR (Non-Af Amer) 89.4 BUN/Creatinine Ratio 10.7 (10-20) Glucose 79 (70-99) mg/dl Calcium 9.5 (8.5-10.1) mg/dl Total Bilirubin 1.6 H (0.2-1) mg/dl AST 808 H (15-37) U/L ALT 180 H (12-78) U/L Alkaline Phosphatase 330 H (45-117) U/L Troponin I < 0.015 (0-0.045) ng/ml Total Protein 7.5 (6.4-8.2) gm/dl Albumin 3.0 L (3.4-5.0) gm/dl Globulin 4.5 H (2.5-4.0) gm/dl Albumin/Globulin Ratio 0.7 L (0.9-2) Lipase 95 (73-393) U/L COVID-19 Eval Order CovFluRsv at [facility] SARS-CoV-2 (PCR) (Negative) Influenza Type A (PCR) (Neg) Influenza Type B (PCR) (Neg) RSV (RT-PCR) (Neg) 10/29/20 Range/Units 20:40 WBC (4.8-10.8) K/uL RBC (4.7-6.1) M/uL Hgb (14.0-18.0) g/dL Hct (42-52) % MCV (80-100) fL MCH (25-34) pg MCHC (32-36) g/dL RDW Std Deviation (36.4-46.3) fL RDW Coeff of Jw (11.5-14.5) % Plt Count (130-400) K/uL MPV (7.4-10.4) fL Immature Gran % (Auto) % Neut % (Auto) % Lymph % (Auto) % [place] % (Auto) % Eos % (Auto) % Baso % (Auto) % Neut # (Auto) (1.4-6.5) K/uL Lymph # (Auto) (1.2-3.4) K/uL Def[place] # (Auto) (0.11-0.59) K/uL Eos # (Auto) (0-0.5) K/uL Baso # (Auto) (0-0.2) K/uL Immature Gran # (Auto) (0.00-0.02) K/uL Sodium (136-145) mmol/L Potassium (3.5-5.1) mmol/L Chloride (98-107) mmol/L Carbon Dioxide (21-32) mmol/L Anion Gap (3-11) BUN (7-18) mg/dl Creatinine (0.6-1.4) mg/dl Est Cr Clr Drug Dosing ml/min Est GFR ( Amer) Est GFR (Non-Af Amer) BUN/Creatinine Ratio (10-20) Glucose (70-99) mg/dl Calcium (8.5-10.1) mg/dl Total Bilirubin (0.2-1) mg/dl AST (15-37) U/L ALT (12-78) U/L Alkaline Phosphatase (45-117) U/L Troponin I (0-0.045) ng/ml Total Protein (6.4-8.2) gm/dl Albumin (3.4-5.0) gm/dl Globulin (2.5-4.0) gm/dl Albumin/Globulin Ratio (0.9-2) Lipase (73-393) U/L COVID-19 Eval Order SARS-CoV-2 (PCR) NEGATIVE (Negative) Influenza Type A (PCR) Negative (Neg) Influenza Type B (PCR) Negative (Neg) RSV (RT-PCR) Negative (Neg) Diagnostic Findings CT ANGIOGRAM OF THE CHEST; CT SCAN OF THE ABDOMEN AND PELVIS WITH IV CONTRAST CLINICAL HISTORY: Atypical chest pain. Right upper quadrant abdominal pain. COMPARISON STUDY: Chest x-ray dated 10/29/2020. Abdominal CT dated 10/21/2020. TECHNIQUE: Following the IV administration of 120 of Optiray 350, CT angiogram of the chest is performed from the upper abdomen to the thoracic inlet utilizing the pulmonary embolus protocol. Images are reviewed in the axial, sagittal, coronal planes. 3-D MIPS images are created and assessed. Subsequently, CT scan of the abdomen and pelvis was performed from the lung bases to the proximal femora. Images are reviewed in the axial, sagittal, and coronal planes. IV contrast was administered without complication. A dose lowering technique was utilized adhering to the principles of ALARA. There is suboptimal contrast opacification of the pulmonary arteries, as well as motion artifact.. CT DOSE: 621.49 mGy.cm FINDINGS: CHEST: Thyroid: Imaged portions of the thyroid gland are normal in size and attenuation. Thoracic aorta: The thoracic aorta is normal in caliber and demonstrates standard 3-vessel arch anatomy. No dissection is seen. Pulmonary vasculature: The pulmonary trunk is normal in caliber. There are no filling defects identified in the main or lobar pulmonary arteries to indicate pulmonary embolus. The segmental and subsegmental branches are not well assessed. Heart: The heart is normal in size and configuration, and without pericardial effusion. Lungs and pleural spaces: Evaluation of the lung parenchyma is degraded by motion artifact. No airspace consolidation or pleural effusion is identified. There is mild dependent atelectasis. The trachea and central airways are clear. Mediastinum: There is no mediastinal lymphadenopathy. Leidy: Clear. Axillae: There is no axillary lymphadenopathy. Bony thorax: No lytic or blastic lesions are identified. ABDOMEN AND PELVIS: Liver: The contrast-enhanced liver is mildly enlarged measuring over 18 cm in length. The liver is markedly heterogeneous in attenuation there is nodularity of the hepatic surface contour. The liver is infiltrated by numerous low- attenuation mass lesions. There is no arterial hypervascularity. Confluent mass lesions in the left lobe measure up to 14 cm in aggregate dimension. Numerous additional smaller lesions are seen throughout both lobes. There is no intrahepatic biliary ductal dilatation. Hepatic veins and portal veins are patent. Gallbladder: Unremarkable. Spleen: Normal in size and attenuation. Pancreas: Unremarkable. Adrenal glands: Unremarkable. Kidneys: The contrast enhanced kidneys are normal in size and without hydronephrosis. The kidneys enhance symmetrically. Abdominal vasculature: The abdominal aorta is normal in course and caliber. Bowel: There is no bowel obstruction. The appendix is normal as visualized. Peritoneum: No intraperitoneal free air is identified. There is trace perihepatic and perisplenic ascites. There is also a small volume of free fluid in the pelvis. Lymphadenopathy: There is upper abdominal lymphadenopathy. A celiac node on image #128 measures 4.4 x 2.3 cm. A peripancreatic node on image #154 measures 3.0 x 1.7 cm. No retroperitoneal, mesenteric, pelvic sidewall, or inguinal adenopathy is identified. Pelvic viscera: The bladder, prostate, and seminal vesicles are normal as visualized. Skeletal structures: No lytic or blastic lesions are seen. IMPRESSION: 1. There is suboptimal contrast opacification of the pulmonary arteries. 2. There is no evidence of central pulmonary embolus in the main or lobar pulmonary arteries. The segmental and subsegmental branches are not adequately assessed. 3. There is no airspace consolidation or pleural effusion. 4. Findings of diffuse hepatic metastatic disease have not significantly changed from 10/21/2020. 5. The liver is mildly enlarged and markedly heterogeneous with nodularity of the surface contour. This likely represents pseudocirrhotic change related to neoplasm. 6. Upper abdominal lymphadenopathy is unchanged and consistent with matthias metastasis. 7. Small volume abdominopelvic ascites. 8. Additional findings as above. ACT 112: Negative or not required by law. Electronically signed by: Harsh Viveros M.D. 10/29/2020 6:20 PM Dictated: 10/29/20 1805 SINGLE VIEW CHEST CLINICAL HISTORY: Atypical chest pain. Right upper quadrant abdominal pain. FINDINGS: An AP, portable, upright chest radiograph is compared to study dated 11/02/2018. The cardiomediastinal silhouette is unremarkable. The lungs and pleural spaces are clear. No pneumothorax is seen. The bony thorax is grossly intact. IMPRESSION: No active disease in the chest. ACT 112: Negative or not required by law. Electronically signed by: Harsh Viveros M.D. 10/29/2020 5:06 PM Dictated: 10/29/201705Transcribed: 10/29/201705 ECG Additional Comments: EKG with NSR at 97, normal axis, SJ=515, QRS=80, OTw=665, no acute ischemic changes. No change from prior study from 10/27/20 Code Status & VTE Plan VTE Prophylaxis Plan VTE Prophylaxis will be ordered: Yes PG Care Time/CCT Total # of Minutes Spent Total Time Spent with Patient: Total time spent is greater than 50% in coordination of care (as documented) at patient's floor/unit and/or counseling patient: Coding Level of Care Code 58784 Initial Inpt Care Lvl 2 Diagnoses Acute pain of right shoulder M25.511 Lesion of liver K76.9 Hx of hepatitis C Z86.19 Abnormal liver enzymes R74.8 GERD (gastroesophageal reflux disease) K21.9 Esophagitis presence: esophagitis presence not specified (1) GERD (gastroesophageal reflux disease) Esophagitis presence: esophagitis presence not specified Qualified Code(s): K21.9 - Gastro-esophageal reflux disease without esophagitis
[2020-10-30] MEDS ORDERED: DOCUSATE SODIUM 100 MG CAP PO PRN (00:23)
[2020-10-30] MEDS ORDERED: HYDROmorphone INJ 0.5 MG/0.5 ML SYR ONE (00:30)
[2020-10-30 00:44] LABS: Magnesium 2.1 mg/dl (1.8-2.4)
[2020-10-30] MEDS: HYDROmorphone INJ 0.5 MG/0.5 ML SYR IV PRN ×2 (03:51→08:57)
[2020-10-30] MEDS ORDERED: GADOXETATE DISODIUM IV ONE (05:01)
--- NOTE | 2020-10-30 07:06 | Ultrasound Report ---
US scrotum/testicle CLINICAL HISTORY: Metastatic disease. Evaluate for testicular primary. COMPARISON STUDY: No previous studies for comparison. FINDINGS: The right testis measured 33 x 16 x 13 mm. The left testis measured 29 x 21 x 14 mm. There is no evidence of testicular torsion. Both testes are slightly heterogeneous in echotexture. There is a low density crescent shaped region marginating the lower pole the left testis. This is avascular. This does not have the typical appearance of a testic ular neoplasm, and is likely benign. There is a left-sided varicocele. IMPRESSION: 1. No evidence of testicular torsion 2. Small crescent shaped hypodense region marginating the lower pole the left testis. This is unlikel y to represent a testicular malignancy. 3. Left-sided varicocele ACT 112: Negative or not required by law. Electronically signed by: Joel Monique M.D. 10/30/2020 7:05 AM
--- NOTE | 2020-10-30 07:28 | Communication Note ---
Date of Service: October 30, 2020 Please keep patient NPO for EUS today which was already scheduled as OP.
[2020-10-30 07:52] LABS: Basophils # (auto) 0.02 K/uL (0-0.2); Basophils % (auto) 0.2 %; Eosinophils # (auto) 0.08 K/uL (0-0.5); Hematocrit (blood only) 40.7 % (42-52); Hemoglobin 13.4 g/dL (14.0-18.0); Immature Granulocytes # (auto) 0.02 K/uL (0.00-0.02); Immature Granulocytes % (auto) 0.2 %; Lymphocytes % (auto) 16.7 %; Mean Corpuscular Hgb Conc 32.9 g/dL (32-36); Mean Corpuscular Volume 85.1 fL (80-100); Mean Platelet Volume 10.3 fL (7.4-10.4); Monocytes % (auto) 11.9 %; Neutrophils # (auto) 5.85 K/uL (1.4-6.5); Platelet Count 412 K/uL (130-400); RDW Coefficient of Variation 14.6 % (11.5-14.5); RDW Standard Deviation 45.7 fL (36.4-46.3); Red Blood Count 4.78 M/uL (4.7-6.1); White Blood Count 8.37 K/uL (4.8-10.8)
[2020-10-30 08:00] LABS: INR 1.2 (0.9-1.1); Prothrombin Time 12.4 Seconds (9.0-12.0)
[2020-10-30 08:27] LABS: Albumin Level 2.7 gm/dl (3.4-5.0); BUN Creatinine Ratio 12.9 (10-20); Bilirubin Direct 0.8 mg/dl (0-0.2); Calcium 9.6 mg/dl (8.5-10.1); Creatinine Clr Calc Pharmacy 105.5 ml/min; Est GFR (African American) 125.1; Potassium 3.9 mmol/L (3.5-5.1)
--- NOTE | 2020-10-30 08:27 | Magnetic Resonance Report ---
MR abdomen wo/w con CLINICAL HISTORY: hepatic masses TECHNIQUE: Imaging was performed prior to and following IV contrast injection. COMPARISON STUDY: CT scan dated 10/29/2020 FINDINGS: Images were acquired in the axial and coronal planes, before and after the administration o f 10 cc of intravenous Eovist The liver is enlarged, and replaced by innumerable large hepatic masses. These masses demonstrate res tricted water diffusion. A confluent left hepatic lobe mass measures 19 cm in diameter. There is evid ence for pseudocirrhosis. There is no ductal dilatation. The spleen is the upper limits of normal in size. No pancreatic masses are visualized. No renal masses are visualized. No adrenal masses are visualized. There is no evidence of abdominal aortic aneurysm. IMPRESSION: 1. The liver is essentially replaced by innumerable large hepatic masses. The largest confluent mass located within the left lobe measuring 19 cm in diameter. There is evidence for pseudocirrhosis. Ther e is no significant ductal dilatation. Given the extremely high alpha-fetoprotein, and history of hep atitis, hepatocellular carcinoma is the diagnosis of exclusion, with metastatic testicular carcinoma not excluded. ACT 112: Negative or not required by law. Electronically signed by: Joel Monique M.D. 10/30/2020 8:25 AM
[2020-10-30 08:34] LABS: Bilirubin,Total 2.2 mg/dl (0.2-1); Total Protein 6.8 gm/dl (6.4-8.2)
[2020-10-30] MEDS ORDERED: INDOMETHACIN 50 MG SUPP PR ONE (08:45)
--- NOTE | 2020-10-30 09:34 | Gastrointestinal Consultation ---
Date of Consultation October 30, 2020 Assessment & Plan (1) Hx of hepatitis C: (2) Lesion of liver: (3) Abdominal pain, RUQ: (4) Elevated LFTs: Pt is a 39 y/o male presented w symptoms of RUQ abd pain radiating to shoulder, noted to have increased LFTs, particularly rise in Tbili which was previously normal. He was already scheduled for outpt EUS liver biopsy by Dr. Patton for liver mass, abd lymphadenopathy and elevated AFP workup suspicious for HCC. Pls keep pt NPO. We will perform EUS w liver biopsy and anticipate possible ERCP for biliary obstruction today in the OR by Dr. Patton Supervising Physician Co-Signing Physician Notes I performed a history and physical examination of the patient today, including specifically on physical exam - soft abdomen. I have discussed the patient's management with the advanced practitioner. Please refer to the nurse practitioner's note for the documented findings and plan of care. History of Present Illness Reason for Consultation: Liver mass biopsy Requesting Physician: Dr. Wei Palmer Attending Physician: Dr. Ramon Patton History of Present Illness Pt is a 39 y/o male who is currently in the process of getting workup for multiple liver lesions, elevated AFP & LFTs. He was scheduled for outpt EUS w liver biopsy by Dr. Patton today however presented last evening to ED w c/o worsening RUQ abd pain w radiation to R shoulder. He denies any fever, chills, n/v, changes in bowel habits. Labs showed elevated LFTs w also elevated Tbili which was previously normal: Tbili 1.6, AST 803, ALT 161, Alk phos 300. Abdomina l imaging w CT and MRI showed again liver lesions, predominantly large one on L lobe measuring 14cm, w upper abd lymphadenopathy. Pt reports hx of Hep C infection, however cleared it w/o med therapy Denies any family hx of liver ca Colonoscopy by Dr. Rodriguez recently unremarkable Allergies Allergy/AdvReac Type Severity Reaction Status Date / Time shrimp Allergy Severe THROAT Verified 10/30/20 10:36 SWELLING amoxicillin Allergy Intermediate HIVES Verified 10/30/20 10:36 cefuroxime [From Ceftin] Allergy Intermediate RASH/BLACK Verified 10/30/20 10:36 SPOTS ON SKIN sulfamethoxazole Allergy Intermediate RASH/BLACK Verified 10/30/20 10:36 [From Septra] SPOTS ON SKIN trimethoprim [From ] Allergy Intermediate RASH/BLACK Verified 10/30/20 10:36 SPOTS ON SKIN unknown antibiotic Allergy Intermediate black & Uncoded 10/30/20 10:36 blue splotches on arms Home Medications Medication Instructions Recorded Confirmed Type omeprazole 40 mg PO QAM 10/23/20 10/29/20 History Patient History Medical History GERD (gastroesophageal reflux disease) Hx of hepatitis C DX OVER 22 YEARS AGO Hyperlipidemia no medications Surgical History H/O umbilical hernia repair History of colonoscopy Family History Father Hypertension Denies family history of Ovarian cancer Prostate cancer Myocardial infarction Breast cancer Colonic polyp Social History Smoking Status: Former smoker Second Hand Exposure: No; Hx Alcohol Use: No Hx Substance Use: No Preferred Language: Djiboutian Communication Ability: Effective Visual Impairment: No Limitations Hearing Ability: Normal 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 Beliefs That Will Affect Care: None marital status: Current Living Situation: Family Current Living Situation Comment: AND 2 CHILDREN current occupational status: employed Feels Safe at Home: Yes Childhood Exposure to Second-Hand Smoke: No Dental Care, Regularly: Yes Physical Activity Frequency: Daily Seatbelt Use: always Assistive Devices: None Review of Systems Review of Systems: All systems reviewed & are unremarkable except as noted in HPI & below Physical Exam Constitutional: WD/WN, vitals as above well groomed, cooperative and comfortable Eyes: PERRL, conjunctivae normal, anicteric sclerae ENMT: external ear and nose normal, oropharynx normal Respiratory: normal respiratory effort, lungs clear to auscultation Cardiovascular: RRR, no murmur, no edema Gastrointestinal (Abdomen): Inspection/Auscultation: + hypoactive bowel sounds Percussion/Palpation: + abdomen tender (RUQ) and abdomen soft Skin: no rashes, warm and dry no jaundice Psychiatric: A+Ox3, euthymic affect Lymphatic: no lymphedema Results & Data ([facility]) Vital Signs (Past 12 Hours) Vital Signs Temp Pulse Pulse Resp BP BP Pulse Ox 10/30/20 07:35 37.2 C 100 H 18 106/67 95 10/30/20 00:20 36.7 C 18 95 10/29/20 23:31 96 H 21 93 10/29/20 23:30 94 H 20 106/58 L 93 10/29/20 23:01 104 H 18 96 10/29/20 23:00 97 H 20 116/73 94 10/29/20 22:40 98 H 18 95 10/29/20 22:31 97 H 13 95 10/29/20 22:30 101 H 17 131/71 97 10/29/20 22:20 109 H 18 96 10/29/20 22:10 99 H 31 H 92 10/29/20 22:01 100 H 22 93 10/29/20 22:00 103 H 32 H 115/75 93 10/29/20 21:31 107 H 14 96 10/29/20 21:30 103 H 17 117/74 95
--- NOTE | 2020-10-30 10:38 | History & Physical Bridge Note ---
Date of Service October 30, 2020 History & Physical Bridge Note I have examined the patient, reviewed the History & Physical and in the interval since the performance of the History & Physical I have noted the following changes of clinical significance: no changes noted EUS/ERCP today
[2020-10-30] MEDS ORDERED: ceFAZolin 1000MG 1,000 MG/7.5 ML SYR IV ONE (10:54)
--- NOTE | 2020-10-30 11:00 | Hospitalist Progress Note ---
Date of Service October 30, 2020 Assessment & Plan (1) Hx of hepatitis C: Patient reports that appx 23 years ago his Aunt was in a bad accident and family members were asked to donate blood. He was told at that time that he had HCV. He reports drinking dandelion tea and using Milk Thistle supplements and having negative followup testing Patient had an acute hepatitis panel performed on 10/16/20 which is negative (2) Lesion of liver: Concern for malignancy with lymph node involvement. ?Primary HCC vs Germ cell primary vs metastatic lesions. Patient has no family history of malignancy and no identifiable risk factors for malignancy (possible history of HCV discussed below). Patient endorses frequent headache mostly at the end of the day. -Check testicular ultrasound as recommended by Oncology -Check hCG with AM labs -Check LDH with AM labs -Check MRI brain -Will keep patient NPO after midnight and hold chemoprophylaxis for DVT for possible liver biopsy in AM. He was to have this performed tomorrow with Dr. Patton in the outpatient setting. Hopefully will be able to complete this study inpatient -Check MRCP -Check INR with AM labs (3) Abdominal pain, RUQ: (4) Elevated LFTs: Pt is a 39 y/o male presented w symptoms of RUQ abd pain radiating to shoulder, noted to have increased LFTs, particularly rise in Tbili which was previously normal. He was already scheduled for outpt EUS liver biopsy by Dr. Patton for liver mass, abd lymphadenopathy and elevated AFP workup suspicious for HCC. Pls keep pt NPO. We will perform EUS w liver biopsy and anticipate possible ERCP for biliary obstruction today in the OR by Dr. Patton Admission and Anticipated Discharge Date Admission Date: October 29, 2020 Results & Data Results & Data ([facility]) Vital Signs (Past 12 Hours) Vital Signs Temp Pulse Pulse Resp BP BP Pulse Ox 10/30/20 10:37 37 C 104 H 18 123/79 96 10/30/20 07:35 37.2 C 100 H 18 106/67 95 10/30/20 00:20 36.7 C 18 95 10/29/20 23:31 96 H 21 93 10/29/20 23:30 94 H 20 106/58 L 93 10/29/20 23:01 104 H 18 96
--- NOTE | 2020-10-30 12:19 | Operative Report ---
Post Operative Report Pre & Post Diagnosis Operation Date: 10/30/20 11:25 Pre-Op Diagnosis: Hepatic Lesion, Abnormal LFT's I identified the patient and participated in the time-out.: Yes Procedure Operation Date: 10/30/20 11:25 Actual Procedures p Endoscopic Ultrasonography Upper, Esophagogastroduodenoscopy, Endoscopic Retrograde Cholangiopancreatography(Not Applicable) - Ramon Patton MD Surgeon Ramon Patton MD Data Entry Associate None Estimated Blood Loss 0 Findings See Below (Multiple Liver masses biopsied, ERCP showed no biliary stricture) Specimens Liver mass and LN Description of Procedure EUS/ERCP I attest to the content of the Intraoperative Record and any orders documented therein. Any exceptions are noted below.
--- NOTE | 2020-10-30 12:51 | Fluoroscopy Report ---
[place] ERCP biliary ductal CLINICAL HISTORY: ERCP DONE IN THE O.R.hepatic masses COMPARISON STUDY: None FLUOROSCOPY TIME: 61 seconds. NUMBER OF FLUOROSCOPIC IMAGES: 5 FINDINGS: 5 intraprocedural fluoroscopic spot images were acquired during ERCP. There is no intrahepa tic biliary ductal dilatation. No ductal filling defects are visualized. IMPRESSION: No evidence of intra or extrahepatic biliary ductal dilatation. ACT 112: Negative or not required by law. Electronically signed by: Joel Monique M.D. 10/30/2020 12:50 PM
--- NOTE | 2020-10-30 13:00 | GI REPORT ---
Patient Name: Luisa Crisostomoagkayla Procedure Date: 10/30/2020 10:51 AM Date of : 1980 Admit Type: Inpatient Age: 39 Gender: Male Attending MD: Ramon Patton MD Procedure: Upper GI endoscopy Providers: Ramon Patton MD Referring MD: Antony Blackman Indications: Abnormal CT of the GI tract Medicines: General Anesthesia Complications: No immediate complications. Estimated Blood Loss: Estimated blood loss: none. Procedure: Pre-Anesthesia Assessment: - Prior to the procedure, a History and Physical was performed, and patient medications, allergies and sensitivities were reviewed. The patient's tolerance of previous anesthesia was reviewed. - The risks and benefits of the procedure and the sedation options and risks were discussed with the patient. All questions were answered and informed consent was obtained. - Patient identification and proposed procedure were verified prior to the procedure by the physician and the nurse. The procedure was verified in the procedure room. - Pre-procedure physical examination revealed no contraindications to sedation. After obtaining informed consent, the endoscope was passed under direct vision. Throughout the procedure, the patient's blood pressure, pulse, and oxygen saturations were monitored continuously. The Endoscope was introduced through the mouth, and advanced to the second part of duodenum. The upper GI endoscopy was accomplished without difficulty. The patient tolerated the procedure well. Findings: The examined esophagus was normal. The entire examined stomach was normal. The duodenal bulb and second portion of the duodenum were normal. A moderate extrinsic deformity was found in the duodenal bulb due to external compression from the liver mass. Impression: - Normal esophagus. - Normal stomach. - Normal duodenal bulb and second portion of the duodenum. - Mild external comporession in the bulb from the large liver mass. Recommendation: - Perform an upper endoscopic ultrasound (UEUS) today. Ramon Patton MD 10/30/2020 1:00:17 PM This report has been signed electronically. Note Initiated On: 10/30/2020 10:51 AM Number of Addenda: 0 I attest to the content of the Intraoperative Record and orders documented therein, exceptions below {[id number]}
--- NOTE | 2020-10-30 13:01 | Anesthesiology Progress Note ---
Date of Service October 30, 2020 Anesthesia Post Procedure Vital Signs Vital Signs: Temp Pulse Pulse Pulse Resp BP BP 10/30/20 12:55 113 H 20 96/57 L 10/30/20 12:45 108 H 14 97/58 L 10/30/20 12:35 112 H 16 84/49 L 10/30/20 12:29 36.6 C 122 H 19 91/48 L 10/30/20 10:37 37 C 104 H 18 123/79 10/30/20 07:35 37.2 C 100 H 18 106/67 10/30/20 00:20 36.7 C 18 10/29/20 23:31 96 H 21 10/29/20 23:30 94 H 20 106/58 L 10/29/20 23:01 104 H 18 10/29/20 23:00 97 H 20 116/73 10/29/20 22:40 98 H 18 10/29/20 22:31 97 H 13 10/29/20 22:30 101 H 17 131/71 10/29/20 22:20 109 H 18 10/29/20 22:10 99 H 31 H 10/29/20 22:01 100 H 22 10/29/20 22:00 103 H 32 H 115/75 10/29/20 21:31 107 H 14 10/29/20 21:30 103 H 17 117/74 10/29/20 21:01 105 H 34 H 10/29/20 21:00 103 H 31 H 122/74 10/29/20 20:31 104 H 3 L 10/29/20 20:30 107 H 13 112/76 10/29/20 20:01 105 H 17 10/29/20 20:00 105 H 18 119/75 10/29/20 19:31 102 H 1 L 10/29/20 19:30 100 H 5 L 118/75 10/29/20 19:01 103 H 18 10/29/20 19:00 102 H 18 113/64 10/29/20 18:31 103 H 16 10/29/20 18:30 102 H 18 108/65 10/29/20 18:01 101 H 19 10/29/20 18:00 100 H 20 122/74 10/29/20 17:37 95 H 22 10/29/20 17:30 94 H 20 121/76 10/29/20 16:07 36.3 C L 100 H 16 129/83 Pulse Ox 10/30/20 12:55 95 10/30/20 12:45 99 10/30/20 12:35 96 10/30/20 12:29 95 10/30/20 10:37 96 10/30/20 07:35 95 10/30/20 00:20 95 10/29/20 23:31 93 10/29/20 23:30 93 10/29/20 23:01 96 10/29/20 23:00 94 10/29/20 22:40 95 10/29/20 22:31 95 10/29/20 22:30 97 10/29/20 22:20 96 10/29/20 22:10 92 10/29/20 22:01 93 10/29/20 22:00 93 10/29/20 21:31 96 10/29/20 21:30 95 10/29/20 21:01 92 10/29/20 21:00 92 10/29/20 20:31 95 10/29/20 20:30 95 10/29/20 20:01 93 10/29/20 20:00 93 10/29/20 19:31 92 10/29/20 19:30 94 10/29/20 19:01 94 10/29/20 19:00 95 10/29/20 18:31 93 10/29/20 18:30 94 10/29/20 18:01 94 10/29/20 18:00 96 10/29/20 17:37 95 10/29/20 17:30 94 10/29/20 16:07 99 Pain Intensity Upper Chest: Pain Intensity: 10 Abdomen: Pain Intensity: 9 Transfer of Care Handoff Completed per policy Notes Mental Status: alert / awake / arousable Patient Amnestic to Procedure: Yes Nausea / Vomiting: adequately controlled Pain: adequately controlled Airway Patency, RR, SpO2: stable & adequate BP & HR: stable & adequate Hydration State: stable & adequate Anesthetic Complications: no major complications apparent
--- NOTE | 2020-10-30 13:06 | GI REPORT ---
Patient Name: Luisa Crisostomoagbokpestela Procedure Date: 10/30/2020 10:53 AM Date of : 1980 Admit Type: Inpatient Age: 39 Gender: Male Attending MD: Ramon Patton MD Procedure: ERCP Providers: Ramon Patton MD Referring MD: Antony Blackman Indications: Elevated liver enzymes, Evaluate for external compression on the bile duct. Medicines: General Anesthesia Complications: No immediate complications. Estimated Blood Loss: Estimated blood loss: none. Procedure: Pre-Anesthesia Assessment: - Prior to the procedure, a History and Physical was performed, and patient medications, allergies and sensitivities were reviewed. The patient's tolerance of previous anesthesia was reviewed. - The risks and benefits of the procedure and the sedation options and risks were discussed with the patient. All questions were answered and informed consent was obtained. - Patient identification and proposed procedure were verified prior to the procedure by the physician and the nurse. The procedure was verified in the procedure room. - Pre-procedure physical examination revealed no contraindications to sedation. After obtaining informed consent, the scope was passed under direct vision. Throughout the procedure, the patient's blood pressure, pulse, and oxygen saturations were monitored continuously. The Scope was introduced through the mouth, and advanced to the duodenum and used to inject contrast into the bile duct. The ERCP was accomplished without difficulty. The patient tolerated the procedure well. Findings: The buffer copper film was normal. The esophagus was successfully intubated under direct vision. The scope was advanced to a normal major papilla in the descending duodenum without detailed examination of the pharynx, larynx and associated structures, and upper GI tract. The upper GI tract was grossly normal. A 0.035 inch straight standard wire was passed into the biliary tree. The Fusion OMNI sphincterotome was passed over the guidewire and the bile duct was then deeply cannulated. Contrast was injected. I personally interpreted the bile duct images. Ductal flow of contrast was adequate. Image quality was adequate. Contrast extended to the main bile duct. Opacification of the entire biliary tree was successful. The maximum diameter of the ducts was 6 mm. There was no stenosis noted. Poor opacification of the left intrahepatic system due to the large liver mass. Biliary sphincterotomy was made with a monofilament traction (standard) sphincterotome using ERBE electrocautery. There was no post-sphincterotomy bleeding. The biliary tree was swept with an 11.5 mm balloon starting at the bifurcation. Sludge was swept from the duct. PD was not cannulated. Impression: - A biliary sphincterotomy was performed. - The biliary tree was swept and sludge was found. - No evidence of any external compression or stenosis of the entire common bile duct and bifurcation. Recommendation: - [facility]. - Avoid aspirin and nonsteroidal anti-inflammatory medicines for 5 days. - Advance diet as tolerated. Ramon Patton MD 10/30/2020 1:05:47 PM This report has been signed electronically. Note Initiated On: 10/30/2020 10:53 AM Number of Addenda: 0 I attest to the content of the Intraoperative Record and orders documented therein, exceptions below {[id number]}
[2020-10-30] MEDS ORDERED: FLUMAZENIL 0.1 MG/1 ML 10 ML VIAL IV PRN (13:08)
[2020-10-30] MEDS ORDERED: PROMETHAZINE HCL 12.5 MG in SODIUM CHLORIDE 0.9% 50 ML IV PRN (13:08)
[2020-10-30] MEDS ORDERED: ePHEDrine sulfate 50 MG/ML AMP IV PRN (13:08)
[2020-10-30] MEDS ORDERED: LABETALOL HCL IV 5 MG/ML 20ML IV PRN (13:08)
[2020-10-30] MEDS ORDERED: ONDANSETRON INJ 2 MG/ML 2 ML VIAL IV PRN (13:08)
[2020-10-30] MEDS ORDERED: ONDANSETRON INJ 2 MG/ML 2 ML VIAL ONE (13:08)
[2020-10-30] MEDS ORDERED: ATROPINE SULFATE 0.1 MG/ML 10ML SYR IV PRN (13:08)
[2020-10-30] MEDS ORDERED: NALOXONE HCL 0.4 MG/1 ML VIAL/CARP IV PRN (13:08)
[2020-10-30] MEDS ORDERED: SODIUM CHLORIDE 0.9% 1000ML 1,000 ML IV SCH (13:15)
--- NOTE | 2020-10-30 13:45 | GI REPORT ---
Patient Name: Luisa Crisostomoagbokpor Procedure Date: 10/30/2020 10:52 AM Date of : 1980 Admit Type: Inpatient Age: 39 Gender: Male Attending MD: Ramon Patton MD Procedure: Upper EUS Providers: Ramon Patton MD Referring MD: Antony Matos, Gunner Rodriguez MD, Wei Palmer Indications: Lymphadenopathy on CT scan, Suspected mass in liver on CT scan, Elevated liver enzymes Medicines: General Anesthesia, Ancef 1000 mg IV Complications: No immediate complications. Estimated Blood Loss: Estimated blood loss: none. Procedure: Pre-Anesthesia Assessment: - Prior to the procedure, a History and Physical was performed, and patient medications, allergies and sensitivities were reviewed. The patient's tolerance of previous anesthesia was reviewed. - The risks and benefits of the procedure and the sedation options and risks were discussed with the patient. All questions were answered and informed consent was obtained. - Patient identification and proposed procedure were verified prior to the procedure by the physician and the nurse. The procedure was verified in the procedure room. - Pre-procedure physical examination revealed no contraindications to sedation. After obtaining informed consent, the endoscope was passed under direct vision. Throughout the procedure, the patient's blood pressure, pulse, and oxygen saturations were monitored continuously. The Endosonoscope was introduced through the mouth, and advanced to the second part of duodenum. The upper EUS was accomplished without difficulty. The patient tolerated the procedure well. Findings: ENDOSONOGRAPHIC FINDING: : Numerous number of round masses of variable sizes were identified endosonographically in the left lobe of the liver and in the right lobe of the liver. The masses were heterogenous. The masses measured up to 50 mm in maximal cross-sectional diameter. The endosonographic borders were well-defined. Fine needle biopsy was performed. Color Doppler imaging was utilized prior to needle puncture to confirm a lack of significant vascular structures within the needle path. Four passes were made with the 25 gauge Skillset EchoTip Ultra biopsy needle using a transgastric approach. A visible core of tissue was obtained. The cellularity of the specimen was adequate. Final cytology results are pending. Verification of patient identification for the specimen was done by the physician and nurse using the patient's name and date. Many malignant-appearing lymph nodes were visualized in the celiac region (level 20), peripancreatic region and sahra hepatis region. The largest measured 30 mm in maximal cross-sectional diameter. The nodes were round, hypoechoic and had well defined margins. Fine needle biopsy was performed. Color Doppler imaging was utilized prior to needle puncture to confirm a lack of significant vascular structures within the needle path. Two passes were made with the 25 gauge Skillset EchoTip Ultra biopsy needle using a transgastric approach. A visible core of tissue was obtained. The cellularity of the specimen was adequate. Final cytology results are pending. There was no sign of significant endosonographic abnormality in the ampulla. No masses were identified. There was no sign of significant endosonographic abnormality in the common bile duct. The maximum diameter of the duct was 5 mm. A small amount of hyperechoic material consistent with sludge was visualized endosonographically in the common bile duct. There was no sign of significant endosonographic abnormality in the entire pancreas. The pancreatic duct measured up to 2 mm in diameter. There was no sign of significant endosonographic abnormality in the visualized portion of the left adrenal gland. There was no sign of significant endosonographic abnormality involving the celiac trunk. Impression: - Multiple masses were found in the left lobe of the liver and in the right lobe of the liver, likely metastatic/ multifocal HCC. Fine needle biopsy performed. - Many malignant-appearing lymph nodes were visualized in the celiac region (level 20), peripancreatic region and sahra hepatis region. Fine needle biopsy performed. - There was no sign of significant pathology in the ampulla. - There was no sign of significant pathology in the common bile duct. - Hyperechoic material consistent with sludge was visualized endosonographically in the common bile duct. - There was no sign of significant pathology in the entire pancreas. - Endosonographic images of the left adrenal gland were unremarkable. - The celiac trunk was endosonographically normal. Recommendation: - Perform an ERCP today. - Await cytology results. Ramon Patton MD 10/30/2020 1:45:07 PM This report has been signed electronically. Note Initiated On: 10/30/2020 10:52 AM Number of Addenda: 0 I attest to the content of the Intraoperative Record and orders documented therein, exceptions below {[id number]}
--- NOTE | 2020-10-30 13:46 | XRay Report ---
KUB CLINICAL HISTORY: Abdominal pain after EUS COMPARISON STUDY: CT of the abdomen and pelvis October 29, 2020. MRI of the abdomen October 30, 2020. FINDINGS: There is contrast within the bladder. There is also contrast within the gallbladder from re cent ERCP. The bowel gas pattern is normal. There are no unexpected radiopaque foreign bodies. Sensit ivity for detection of free air is diminished on this supine exam but there is no evidence for free a ir. IMPRESSION: 1. No evidence for free air although sensitivity diminished on this supine exam. 2. No evidence for a bowel obstruction. ACT 112: Negative or not required by law. Electronically signed by: Corey Ray M.D. 10/30/2020 1:45 PM
[2020-10-30] MEDS: fentaNYL citrate 100 MCG/2 ML VIAL IV PRN ×2 (13:48→13:53)
[2020-10-30 14:16] LABS: Hematocrit (blood only) 25.9 % (42-52); Hemoglobin 8.1 g/dL (14.0-18.0); Mean Corpuscular Hemoglobin 27.3 pg (25-34); Mean Corpuscular Hgb Conc 31.3 g/dL (32-36); Mean Corpuscular Volume 87.2 fL (80-100); Mean Platelet Volume 9.3 fL (7.4-10.4); Platelet Count 370 K/uL (130-400); RDW Coefficient of Variation 14.8 % (11.5-14.5); RDW Standard Deviation 46.6 fL (36.4-46.3); Red Blood Count 2.97 M/uL (4.7-6.1); White Blood Count 11.66 K/uL (4.8-10.8)
[2020-10-30] MEDS ORDERED: SODIUM CHLORIDE 0.9% 250 ML IV PRN ×2 (14:32→15:18)
--- NOTE | 2020-10-30 14:33 | Communication Note ---
Date of Service: October 30, 2020 Pt was being prepared for discharge from PACU to floor when he started o c/o abdominal pain, w/ decreased BP; Fluid has been given to resuscitate Pt.; Hgb & Hct done ,results showing a drop from 13.4/40.7 [address] 8.1/25.9. Dr Patton is entertaining rupture of hepatic bleb as cause of possible bleeding. Pt will be transferred to ICU.
[2020-10-30] MEDS ORDERED: OPTIRAY 300 100mL IV ONE (14:47)
[2020-10-30] MEDS ORDERED: MoRPHine SULFATE 2 MG/ML CARP IV PRN (15:11)
--- NOTE | 2020-10-30 15:12 | CT Scan Report ---
CT abd pelvis IV con only CLINICAL HISTORY: abd pain COMPARISON STUDY: CT scan dated 10/29/2020, MRI dated 10/30/2020 TECHNIQUE: The patient was scanned in a dynamic helical fashion during intravenous administration of 87 cc of Optiray 320. A dose lowering technique was utilized adhering to the principles of ALARA. CT DOSE: 399.94 mGy.cm FINDINGS: Lower chest: There is a small right pleural effusion with right basilar atelectatic changes. Liver: There are innumerable space occupying hepatic masses occupying the majority of the liver. Whil e likely representing hepatocellular carcinoma, metastatic disease could appear similar. There is con trast within the intrahepatic biliary ducts secondary to a prior ERCP. Gallbladder: Unremarkable. Spleen: Normal in size and attenuation. Pancreas: Unremarkable. Adrenal glands: Unremarkable. Kidneys: There is symmetric renal cortical enhancement. The kidneys are normal in size without hydron ephrosis. Bowel: There are no transition zones indicate bowel obstruction. Peritoneum: Since the prior study, the patient has developed a large volume of intraperitoneal fluid with some dependent hyperdense layering consistent with hemorrhage. In addition there is a large 15 c m hematoma in the region of the lesser sac. Adjacent areas of hemorrhage within the mesentery are vis ualized. Vasculature: The abdominal aorta is normal in course and caliber. Adenopathy: None. Pelvic viscera: The bladder, and pelvic viscera are unremarkable. Skeletal structures: No destructive osseous lesions are seen. IMPRESSION: 1. Multiple confluent space-occupying hepatic masses, suspicious for hepatocellular carcinoma or less likely metastatic disease 2. Interval development of a large 15 cm hematoma in the region of the lesser sac. There are adjacent areas of hemorrhage within the mesentery 3. Interval development of a moderate amount of free peritoneal fluid with a small amount of dependen t hemorrhagic layering. 4. Small right pleural effusion 5. The scan findings were reviewed with the attending physician at 3:00 PM. ACT 112: Negative or not required by law. Electronically signed by: Joel Monique M.D. 10/30/2020 3:10 PM
[2020-10-30] MEDS ORDERED: MoRPHine SULFATE 2 MG/ML CARP ONE (15:14)
[2020-10-30] MEDS ORDERED: HYDROmorphone INJ 1 MG/ML SYRINGE IV STA (15:30)
[2020-10-30] MEDS ORDERED: HYDROmorphone INJ 1 MG/ML SYRINGE ONE (15:31)
--- NOTE | 2020-10-30 15:43 | Procedure Note ---
Procedure Note Date of Service October 30, 2020 Procedure: Inserting ultrasound-guided central aerosol line operator: Dr. Lei Gold Indication: Hypotension/Hemorrhage Consent: Verbal consent was obtained from the patient prior to the procedure. This was an emergent situation as well Anesthesia: 1% lidocaine without epinephrine local. Procedure: Consent was verified and timeout performed. Appropriate imaging studies were reviewed prior to the procedure. Under aseptic and sterile condition, right IJ vein was accessed under direct ultrasound guidance. Guidewire was confirmed to be within the lumen of vein with the help of ultrasound. Catheter was introduced via Seldinger technique. Guide a wire was removed. Good non-pulsatile blood flow was appreciated from all the ports. The catheter was placed at 16 cm and [address] in place. BioPatch was applied to the catheter and a sterile Tegaderm dressing was applied over the catheter with careful attention to sterility. Lung sliding was appreciated post procedure with the help ultrasound. Chest x-ray to follow Patient tolerated the procedure well. Blood loss: Less than 2 cc Complications: None Coding CPT Codes Tubes, Drains, and Vasc Access - Tubes, Drains, and Vasc Access: [id number] Place catheter in vein superior or inferior vena cava ([id number]) Tubes, Drains, and Vasc Access - Tubes, Drains, and Vasc Access: [id number] Ultrasound Guidance For Vascular ([id number]) [facility] Procedure Codes (Charges) Tubes, Drains, and Vasc Access Procedure 1: Tubes, Drains, and Vasc Access: [id number] Place catheter in vein superior or inferior vena cava Procedure 2: Tubes, Drains, and Vasc Access: [id number] Ultrasound Guidance For Vascular
[2020-10-30] MEDS ORDERED: STAT IV Infusion **Titration per Protocol STA (15:46)
[2020-10-30] MEDS ORDERED: NOREPINEPHRINE/D5W 8 MG/508 ML IV ONE (15:46)
--- NOTE | 2020-10-30 15:53 | XRay Report ---
XR chest 1V portable HISTORY: Central line placement. COMPARISON: Chest 10/29/2020. FINDINGS: Interval placement of right jugular central venous catheter which likely terminates in the right atrium. No pneumothorax. No pleural effusions. There are low lung volumes. Cardiac silhouette i s mildly enlarged which may be accentuated by the low lung volumes. No new focal lung consolidations to suggest pneumonia. No evidence for pulmonary edema. IMPRESSION: Right jugular central venous catheter terminates in the right atrium. No pneumothorax. ACT 112: Negative or not required by law. Electronically signed by: Valentin Guerra M.D. 10/30/2020 3:52 PM
[2020-10-30] MEDS ORDERED: NOREPINEPHRINE/D5W 8 MG/508 ML BAG IV SCH (16:00)
--- NOTE | 2020-10-30 16:03 | Discharge Summary ---
Date of Service October 30, 2020 Admission HPI Per Admitting Provider Mr. Bray is a 39yo male presenting with right shoulder pain and RUQ abdominal discomfort. Patient was born and raised in [place]. He [place] been [place] in the [place] over [place]. Until recently he had been in very good health, working out frequently and training for a marathon. In August 2020 he developed upper abdominal pain and fullness as well as gas and bloating. He had an abdominal ultrasound and liver studies ordered by his PCP on 10/13/20 which was suggestive of malignant lesions of the liver, possibly representing metastatic disease. He had a colonoscopy performed on 10/28/20 which was normal. He was evaluated by Dr. Matos from Hematology/Oncology on 10/28/20. Patient was scheduled to have upper GI EUS with biopsy of liver lesion and nodes performed tomorrow outpatient. He presents today to [facility] ER with complaint of severe right shoulder and neck discomfort as well as RUQ and right posterior rib discomfort. Pain is pleuritic in nature and began acutely around 15:00 while the patient was at work. He denies chest pain, palpitations, SOB although he does endorse short/shallow breathing due to pain. He has ongoing abdominal pain but denies nausea/vomiting/diarrhea or constipation. He endorses poor appetite as well as significant weight loss of appx 35# over the past month. He also reports a frequent headache that occurs in the evening. He does not wake with a ORTEGA and denies seizure, numbness/tingling/weakness or other focal deficits. Abd US 10/16/20: Lobular and heterogenous liver which may contain scattered lesions. Three is also mild periportal LAD. Labs 10/16/20: FFI=541, YZ=585. EBV Capsig IgG > 750 and EBV Nuclear Antigen Ab [address] CT Abdomen 10/21/20: Liver is infiltrated by numerous large mass lesions. Should be considered neoplasm until proven otherwise, and metastatic disease is favored over a primary hepatic neoplasm. Colorectal carcinoma is a strong consideration. Enlarged and centrally necrotic upper abdominal lymph nodes consistent with metastatic disease. Labs 10/21/20: CEA <0.5 AFP = 305446.9 Colonoscopy 10/27/20: Normal terminal ileum and colon. No polyps or masses. Non-bleeding internal hemorrhoids. ER Course: Dilaudid 0.5mg IV x 4. Zofran 4mg IV, NSS x 1500mL Admission Exam Per Admitting Provider General: patient resting, slightly uncomfortable due to RUQ pain, NAD, non- toxic in appearance, AA&O x 4 Skin: warm, dry, intact, no rashes or lesions HEENT: NC/AT, PERRL, EOMI, anicteric sclera, conjunctiva without injection, external ear normal to inspection and nontender, nares patent, moist mucus membranes, dentition intact, no oropharyngeal lesions, neck supple, trachea midline, no LAD, no thyromegaly, no JVD Heart: +S1/S2, regular, no m/r/g Lungs: equal air entry bilaterally, no rales/rhonchi/wheezes Abd: +BS, soft, tender in RUQ, palpable liver margin, enlarged to percussion Ext: warm, 2+ pulses in UE/LE bilaterally, no clubbing/cyanosis or edema Neuro: nonfocal, patient AA&O x 4, speech intact, no facial droop, moving all extremities on command with equal strength 5/5 Principal Diagnosis Intra-abdominal hemorrhage Multiple hepatic lesions Discharge Exam General: NAD. HEENT: Atraumatic, normocephalic. R IJ CVC in place Pulm: CTAB A&P. -wheezes, -rales, -rhonchi. Symmetrical chest rise. No increase work of breathing. No respiratory distress. Cardiac: tachycardic rate, regular rhythm, -mrg. Radial pulses intact and symmetrical. Abdominal: soft, mildly tender in RUQ, moderately distended with guarding and rebound, hypoactive BS x 4 Skin: warm, moist Discharge Data Allergies Allergy/AdvReac Type Severity Reaction Status Date / Time shrimp Allergy Severe THROAT Verified 10/30/20 10:36 SWELLING amoxicillin Allergy Intermediate HIVES Verified 10/30/20 10:36 cefuroxime [From Ceftin] Allergy Intermediate RASH/BLACK Verified 10/30/20 10:36 SPOTS ON SKIN sulfamethoxazole Allergy Intermediate RASH/BLACK Verified 10/30/20 10:36 [From Septra] SPOTS ON SKIN trimethoprim [From Septra] Allergy Intermediate RASH/BLACK Verified 10/30/20 10:36 SPOTS ON SKIN unknown antibiotic Allergy Intermediate black & Uncoded 10/30/20 10:36 blue splotches on arms Consultations 10/29/20 20:27 ED Decision to Admit Stat 10/30/20 00:23 Consult Gastroenterology Routine 10/30/20 15:41 Burn CD for patient Stat Procedures Performed Operation Date: 10/30/20 11:25 Actual Procedures p Endoscopic Ultrasonography Upper, Esophagogastroduodenoscopy, Endoscopic Retrograde Cholangiopancreatography(Not Applicable) - Ramon Patton MD Ordered Studies 10/29/20 17:12 CT abd pelvis IV con only Stat CT angio chest PE protocol Stat 10/30/20 00:23 US scrotum/testicle Routine 10/30/20 00:48 MR abdomen wo/w con Routine 10/30/20 07:44 US upper EUS PACS images Routine 10/30/20 10:25 MR brain wo/w con Routine 10/30/20 11:20 FL ERCP biliary ductal Routine 10/30/20 14:13 CT abd pelvis IV con only Stat 10/30/20 15:10 US point of care ultrasound Urgent Hospital Course (1) Hx of hepatitis C: Acute Intra-abdominal hemorrhage Patient with likely HCC, GI consulted and performed liver biopsy, after which patient became hypotensive to 90s/50s and tachycardic to 120s. Stat CT abd/pelv with IV contrast showing intra-abdominal hemorrhage without active extravasa tion. Hgb acutely down from 13 to 8. Patient was transferred to ICU. R IJ CVC inserted and IVFs/packed RBCs started. Massive transfusion protocol initiated. Patient is accepted for transfer to [facility] for necessity for IR procedure to stop active bleeding. Acute pain of right shoulder: 39 yo male with diffuse hepatic lesions most concerning for malignant process with metastases. Patient is in the midst of diagnostic workup and staging. Presents to the ER today with worsening RUQ and right shoulder/neck pain. Imaging redemonstrates hepatic lesions with matthias involvement. CTA was negative for PE, however, study suboptimal. Suspect right shoulder pain is referred from expanding liver lesions -Dilaudid 0.5mg IV q 2 hours - can increase as needed to optimize pain control -Colace PRN Lesion of liver: Concern for malignancy with lymph node involvement. ?Primary HCC vs Germ cell primary vs metastatic lesions. Patient has no family history of malignancy and no identifiable risk factors for malignancy (possible history of HCV discussed below). Patient endorses frequent headache mostly at the end of the day. AFP >200,000. INR 1.2. PT/PTT WNL. -testicular ultrasound showed hypodense lesion - unlikely malignancy - MRI brain pending - GI consulted for liver biopsy/ERCP, biopsy and related events mentioned above, ERCP without signs of biliary obstruction - Trend CBC/CMP/INR/PT/PTT in the AM Hx of hepatitis C: Patient reports that appx 23 years ago his Aunt was in a bad accident and family members were asked to donate blood. He was told at that time that he had HCV. He reports drinking dandelion tea and using Milk Thistle supplements and having negative followup testing Patient had an acute hepatitis panel performed on 10/16/20 which is negative Abnormal liver enzymes: Patient with worsening LFTs, mixed hepatocellular and obstructive pattern. Concern for progression of lesions. He is afebrile, HD stable, non-toxic in appearance. No leukocytosis to suggest infectious process. -Check INR as above -Repeat LFTs in AM GERD (gastroesophageal reflux disease): Chronic -Hold Omeprazole for now F/E/N - NPO, NSS @100cc/hr, pRBCs infusing Ppx - SCDs. Code - Full Dispo - Transfer to [facility] ICU for IR (2) Lesion of liver: (3) Abdominal pain, RUQ: (4) Elevated LFTs: Total Time Total Time Spent Total Time Spent (In Minutes): 60 minutes Total Time Includes: Examination of the Patient, Discharge Planning, Medication Reconciliation, Communication With Other Providers and Other Discharge Plan Discharge Items Patient Disposition: Transfer Acute Care Hospital Reason For Visit: HEPATIC LESIONS, ABNORMAL LFTS Discharge Diagnosis: Acute intra-abdominal hemorrhage Multiple Hepatic Lesions Activity: Per Instructions section Non-emergency contact: Primary Care Provider, Surgical First Assistant and Oncologist Call non-emergency contact if: you have any medication questions, your symptoms worsen, your pain is not controlled and your temperature is above 101 Follow-up/Referrals: Vasquez Che MD [Primary Care Provider] - Diet: Regular Addtl Attending Provider Instructions: Acute Intra-abdominal hemorrhage Patient with likely HCC, GI consulted and performed liver biopsy, after which patient became hypotensive to 90s/50s and tachycardic to 120s. Stat CT abd/pelv with IV contrast showing intra-abdominal hemorrhage without active extravasation. Hgb acutely down from 13 to 8. Patient was transferred to ICU. R IJ CVC inserted and IVFs/packed RBCs started. Massive transfusion protocol initiated. Patient is accepted for transfer to [facility] for necessity for IR procedure to stop active bleeding. Acute pain of right shoulder: 39 yo male with diffuse hepatic lesions most concerning for malignant process with metastases. Patient is in the midst of diagnostic workup and staging. Presents to the ER today with worsening RUQ and right shoulder/neck pain. Imaging redemonstrates hepatic lesions with matthias involvement. CTA was negative for PE, however, study suboptimal. Suspect right shoulder pain is referred from expanding liver lesions -Dilaudid 0.5mg IV q 2 hours - can increase as needed to optimize pain control -Colace PRN Lesion of liver: Concern for malignancy with lymph node involvement. ?Primary HCC vs Germ cell primary vs metastatic lesions. Patient has no family history of malignancy and no identifiable risk factors for malignancy (possible history of HCV discussed below). Patient endorses frequent headache mostly at the end of the day. AFP >200,000. INR 1.2. PT/PTT WNL. -testicular ultrasound showed hypodense lesion - unlikely malignancy - MRI brain pending - GI consulted for liver biopsy/ERCP, biopsy and related events mentioned above, ERCP without signs of biliary obstruction - Trend CBC/CMP/INR/PT/PTT in the AM Hx of hepatitis C: Patient reports that appx 23 years ago his Aunt was in a bad accident and family members were asked to donate blood. He was told at that time that he had HCV. He reports drinking dandelion tea and using Milk Thistle supplements and having negative followup testing Patient had an acute hepatitis panel performed on 10/16/20 which is negative Abnormal liver enzymes: Patient with worsening LFTs, mixed hepatocellular and obstructive pattern. Concern for progression of lesions. He is afebrile, HD stable, non-toxic in appearance. No leukocytosis to suggest infectious process. -Check INR as above -Repeat LFTs in AM GERD (gastroesophageal reflux disease): Chronic -Hold Omeprazole for now F/E/N - NPO, NSS @100cc/hr, pRBCs infusing Ppx - SCDs. Code - Full Dispo - Transfer to [facility] ICU for IR Pending Studies at Discharge: No Stand-Alone Forms: My [facility] Skilled Items Patient informed of condition?: Yes DNR: No Discharge Level of Care: Other Communicable Disease: No Discharge Prognosis: Deteriorating Lines: Peripheral IV and Mid-Line Urinary Catheter: Yes Medications and DC Order Prescriptions: Continued omeprazole 40 mg capsule,delayed release(DR/EC) 40 mg PO QAM RF: 0 Discharge Orders: Discharge Order (Routine); Ordered 10/30/20 Ordered By: Nicola Richards Admission Data Admit Date/Time: 10/29/20 22:52 Attending Provider: Wei Palmer Admit Provider: Lizz Fine Primary Care Provider: Vasquez Che V. Other Providers: Lizz Fine ; Ramon Patton ; Lei Gold Supervising Physician Co-Signing Physician Notes I also saw the patient and confirmed grimaldo portions of the history and physical e xamination. I agree with the impression and plan as noted in the resident documentation. Upon her first exam around 945 this morning, the patient was seen in his room. He was without complaints; he denied abdominal pain. He was hemodynamically stable and awaiting procedure. At approximately 2:30 PM, I was notified by the gastroenterology team that the patient became hypotensive shortly after the procedure and repeat blood work had showed a significant drop in hemoglobin (13.4 -8.1). IV fluids were running and units of packed red blood cells were on order; when I saw the patient again, he was in the CT unit awaiting a scan of his abdomen and pelvis. The scan, unfortunately, demonstrated findings consistent with a left hepatic lobe tumor hemorrhage. I personally viewed the images with radiology. The patient was then transferred to the ICU. A central line was placed for greater access, and the mass transfusion protocol was initiated. The patient generally maintained a systolic blood pressure in the mid 90s, however he did momentarily dip to the 70s following the administration of Dilaudid for continued abdominal pain; at this point Levophed was ordered, although his blood pressure did seem to rebound prior to the actual administration of the Levophed. Given the critical nature of the patient's bleed, and the lack of interventional radiology and trauma surgery at this facility, we arranged transfer to [facility] via helicopter. The need for transfer, including the risk and benefits, were reviewed with the patient and his he was also at bedside. I remained with the patient, or on the unit providing direct patient care, from 2:30 PM until 4:30 PM. Resident Activity Tracking Resident Involvement: Resident Care Provided Care Provided: Adult Hospital Medicine
[2020-10-30 16:16] LABS: Hemoglobin 6.1 g/dL (14.0-18.0); Mean Corpuscular Hemoglobin 26.9 pg (25-34); Mean Corpuscular Hgb Conc 30.5 g/dL (32-36); Mean Corpuscular Volume 88.1 fL (80-100); Mean Platelet Volume 9.8 fL (7.4-10.4); Platelet Count 355 K/uL (130-400); RDW Coefficient of Variation 14.8 % (11.5-14.5); RDW Standard Deviation 47.1 fL (36.4-46.3); Red Blood Count 2.27 M/uL (4.7-6.1); White Blood Count 12.38 K/uL (4.8-10.8)
--- NOTE | 2020-10-30 16:16 | Electrocardiogram Report ---
Test Reason : Blood Pressure : / mmHG Vent. Rate : 097 BPM Atrial Rate : 097 BPM P-R Int : 152 ms QRS Dur : 080 ms QT Int : 336 ms P-R-T Axes : 034 031 015 degrees QTc Int : 426 ms Normal sinus rhythm Normal ECG When compared with ECG of 27-OCT-2020 11:29, No significant change was found Confirmed by Tahir Eng ([id number]) on 10/30/2020 4:16:14 PM Referred By: REFERRED SELF Confirmed By:Bakari Eng
[2020-10-30 16:30] LABS: Alanine Aminotransferase 85 U/L (12-78); Albumin Globulin Ratio 0.7 (0.9-2); Albumin Level 1.4 gm/dl (3.4-5.0); Alkaline Phosphatase 154 U/L (45-117); Aspartate Aminotransferase 479 U/L (15-37); BUN Creatinine Ratio 13.8 (10-20); Bilirubin,Total 1.3 mg/dl (0.2-1); Blood Urea Nitrogen 15 mg/dl (7-18); Calcium 7.6 mg/dl (8.5-10.1); Carbon Dioxide 19 mmol/L (21-32); Chloride 112 mmol/L (98-107); Creatinine Clr Calc Pharmacy 86.6 ml/min; Est GFR (African American) 101.2; Est GFR (Non-African American) 87.4; Globulin 2.1 gm/dl (2.5-4.0); Glucose 124 mg/dl (70-99); Potassium 4.4 mmol/L (3.5-5.1); Sodium 144 mmol/L (136-145); Total Protein 3.5 gm/dl (6.4-8.2); Troponin I < 0.015 ng/ml (0-0.045)
[2020-10-30 16:31] LABS: Basophils # (auto) 0.01 K/uL (0-0.2); Basophils % (auto) 0.1 %; Eosinophils # (auto) 0.01 K/uL (0-0.5); Eosinophils % (auto) 0.1 %; Immature Granulocytes # (auto) 0.08 K/uL (0.00-0.02); Immature Granulocytes % (auto) 0.6 %; Lymphocytes # (auto) 1.88 K/uL (1.2-3.4); Lymphocytes % (auto) 15.2 %; Monocytes # (auto) 1.04 K/uL (0.11-0.59); Monocytes % (auto) 8.4 %; Neutrophils # (auto) 9.36 K/uL (1.4-6.5); Neutrophils % (auto) 75.6 %; Polychromasia 1+
[2020-10-30 16:57] LABS: Fibrinogen 205 mg/dl (184-400); INR 1.6 (0.9-1.1); Partial Thromboplastin Ratio 1.3; Partial Thromboplastin Time 33.3 Seconds (21.0-31.0); Prothrombin Time 15.9 Seconds (9.0-12.0)
--- NOTE | 2020-10-30 17:07 | Critical Care Consultation ---
Date of Consultation October 30, 2020 Assessment & Plan (1) Postoperative hemorrhagic shock: Reason Critically Ill: Luisa ("Erasto") is a 39-year-old gentleman with a notable past medical history of hepatitis C infection status post treatment who presented to [facility] for increasing right upper quadrant abdominal pain as well as shoulder pain, subsequently found to have elevated LFTs and a hepatic mass on ultrasonography; biopsy of this was attempted on 10/30 with an immediate postoperative course complicated by acute hemorrhage and hematoma formation, as well as hemorrhagic shock. He was emergently transferred to [facility] via [facility] for interventional planning. Please note that this patient was in ICU care for only a short amount of time before being transferred. All subsequent documentation represents actions that were done in the setting of a life-threatening emergency. Neuro - Sedation: none Analgesia: morphine 2mg x 1, Dilaudid 1mg x 1 * Without known history of neurologic disease or insult * Upon arrival to the ICU, patient was fully alert and oriented, although in distress * Morphine 2 mg and Dilaudid 1 mg were given to achieve adequate analgesia in the setting of significant abdominal pain Cardiac - Hemorrhagic Shock - Hypotension * Patient noted to be hypotensive, tachycardic in PACU --> transferred to MICU * Development of hemorrhage/hematoma in lesser sac/mesentery after biopsy of hepatic mass, suspected HCC * Hgb on arrival 13.4 --> Hgb in PACU 8.1 --> Hgb upon departure 6.1 (Hct 20) * Massive transfusion protocol activated in the MICU * Central line placed for administration of pressors, greater access * Hemodynamic support with NSS (bolus), pRBC (1 given here before transfer; 1 sent along w/ Plt + Cryo), Levo * On arrival to ICU, blood pressures were 90s over 50s, upon departure 100 over 50s. Lowest at 70/50. * Do suspect ghada \\t abdominal tamponade had an effect on stabilizing hemodynamics alongside measures above * Supportive: NC @ 2.5lpm, Trendelenburg, thermal warming with blankets, Wood to monitor UOP * Stat labs drawn just before departure - Lactate > 10, Plt 350, others pending * As above- emergent transfer to [facility] for hemodynamic support, IR services to aid with control of hemorrhage Respiratory - * Without history of respiratory disease or insult * Did not require supplemental O2 for respiratory failure; 2.5lpm given in setting of hemorrhagic shock with SpO2s > 97% * Continued upon discharge GI - Hepatic Mass * Patient with known h/o HCV s/p treatment over 10 years ago * Patient presented with abdominal pain, transaminitis, elevated TBili * Identification of hepatic mass on US --> ERCP, biopsy on 10/30; suspected to be HCC * Postoperative course complicated by hematoma formation, hemorrhagic shock- as above * Transfer to [facility] as above GERD - continue omeprazole, will require PPX PPIs RENAL/LYTES - * BUN/Cr stable throughout course, including on discharge * Mild anion gap metabolic acidosis w/ elevated lactate (10) likely 2/2 HoTN in setting of hemorrhagic shock * Aggressive fluid resuscitation * UOP monitoring - * Wood placed prior to discharge with adequate drainage of urine ENDO - * No immediate measures required with regards to endocrinologic support HEME - * Hemorrhagic shock s/p hepatic mass biopsy, as above * At discharge: 12.4 > 6.1 / < 355 * Massive transfusion protocol, hemodynamic support as above * 1 pRBC given -- sent along in transport as they became available: additional 1 pRBC, cryo, platelets ID - * No immediate infectious concerns during short stay here INTEGUMENTARY - * No acute or immediate concerns * Maintain PIVs, central line LINES/IV ACCESS - at discharge- PIV x 2, central line via R IJ, Wood DVT PROPHYLAXIS - SCDs prior. Avoid anticoagulation at present given massive hemorrhage. CODE - Full code was noted Thank you for allowing us to be part of this patient's care. Please refer to Dr. Gold's documentation for any further recommendations. (2) Hx of hepatitis C: (3) Abdominal pain, RUQ: (4) Abnormal liver enzymes: Supervising Physician Co-Signing Physician Notes Dr. Orantes was the resident-physician during care of patient. I separately evaluated patient for grimaldo portions of the history and the exam. I was present during the critical portion of medical decision making, and I discussed the case with the resident. I generally agree with the findings and plan except for any additions/exceptions noted. Patient seen and examined at bedside. He had endoscopy with biopsy of the liver for possible hepatocellular carcinoma. This was complicated by bleed His hemoglobin was 13 which went down to 8 in the moment a couple of hours. Patient was in severe abdominal pain. CT abdomen pelvis also showed 15 cm hematoma in the region of the lesser sac with moderate amount of free peritoneal fluid In the ICU patient systolic blood pressure was in the 90s. Patient was started on bolus LR. Patient also complaining of severe abdominal pain likely from the intra-abdomi nal bleed. Pain medication with Dilaudid and morphine. Emergent right-sided IJ access was also obtained for possible need of pressors in future. Verbal consent was obtained for it. On physical exam patient had tense abdomen with positive rebound, he was in severe pain. Denied any shortness of breath, no headache. Denied any nausea or vomiting. No blurry vision. Massive transfusion protocol was started. 2 units PRBC followed by another 2 units, 10 units of cryo, FFP and monitor platelet to be given Patient was eventually started on low-dose Levophed as his blood pressure was still going low after somewhat bolus. There is no indication to do paracentesis as the study fluid will ultimately increase intra-abdominal pressure and help tamponade the bleed. Overall prognosis is guarded. Dr. Wong and his team helped to arrange transfer. I have personally spent 70 minutes of critical care time in the direct management of this patient. This is a life/limb threatening event. This in cludes time spent evaluating patient, direct bedside care, chart review, placing orders, interpretation of diagnostic studies, discussion with consultants, patient, and/or family members regarding treatment decisions, as well as other required patient management activities. This time is exclusive of all separately billable procedures, and teaching time and separate from and in addition to any other critical care service time. History of Present Illness Attending Physician: Dr. Gold History of Present Illness This is a 39-year-old gentleman with a notable past medical history of previous hepatitis C infection (patient says approximately 10 years ago) status post fabi tment who presented to [facility] on 10/29 for evaluation of right upper quadrant pain and was noted to have increased LFTs. He underwent a scheduled ultrasound of the liver, which did demonstrate liver mass and lymphadenopathy. Alpha-fetoprotein was also elevated. Together, this was concerning for hepatocellular carcinoma. On 10/30, patient underwent an ERCP and biopsy of the said liver mass. Following the procedure, patient was noted to have increasing abdominal pain, decreased blood pressures, and a hemoglobin dropped from 13.4 on admission to 8.1. CT A/P demonstrated interval development of 15 cm hematoma in the lesser sac and within the mesentery. Together these findings are concerning for acute hemorrhage. Patient was urgently transferred to the ICU. Upon arrival here, he was noted to be in hemorrhagic shock - hypotensive to the 90/50 range and tachycardic in the 120s. He was alert and oriented fully, responding to questions appropriately. He did endorse significant amount of pain in his abdomen noting "I feel like it is going to explode." With the aid of the primary team, emergent transfer was arranged with [facility] in [place]; transport via [facility]. He was started immediately with fluid boluses and orders were placed for immediate transfusion. Morphine and Dilaudid were given. Patient was warmed with multiple blankets. Nasal cannula was placed. Trendelenburg position was assumed. A central venous catheter was placed in the right internal jugular anticipating possible need for pressors in the interim; CXR confirmed proper location. Stat labs drawn. Adequate pain control was achieved, however pressures did briefly drop down to the 70/50 range. As such, Levophed was initiated. Massive transfusion protocol was activated. Orders for FFP and cryo were placed. Wood was placed. Blood pressures upon departure were stable around 100/50 range. By the time [facility] had arrived, patient had nearly finished their first transfusion; an additional unit of blood, as well as platelets were sent with the flight crew. Records and imaging sent stat to receiving facility. The did arrive and was present at the bedside throughout the majority of his ICU course. Allergies Allergy/AdvReac Type Severity Reaction Status Date / Time shrimp Allergy Severe THROAT Verified 10/30/20 10:36 SWELLING amoxicillin Allergy Intermediate HIVES Verified 10/30/20 10:36 cefuroxime [From Ceftin] Allergy Intermediate RASH/BLACK Verified 10/30/20 10:36 SPOTS ON SKIN sulfamethoxazole Allergy Intermediate RASH/BLACK Verified 10/30/20 10:36 [From Septra] SPOTS ON SKIN trimethoprim [From Septra] Allergy Intermediate RASH/BLACK Verified 10/30/20 10:36 SPOTS ON SKIN unknown antibiotic Allergy Intermediate black & Uncoded 10/30/20 10:36 blue splotches on arms Home Medications Medication Instructions Recorded Confirmed Type omeprazole 40 mg PO QAM 10/23/20 10/29/20 History Patient History Medical History GERD (gastroesophageal reflux disease) Hx of hepatitis C DX OVER 22 YEARS AGO Hyperlipidemia no medications Surgical History H/O umbilical hernia repair History of colonoscopy Family History Father Hypertension Denies family history of Ovarian cancer Prostate cancer Myocardial infarction Breast cancer Colonic polyp Social History Smoking Status: Former smoker Second Hand Exposure: No; Hx Alcohol Use: No Hx Substance Use: No Preferred Language: Danish Communication Ability: Effective Visual Impairment: No Limitations Hearing Ability: Normal 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 A+Ox3. Multiple blankets covering the body. HEENT: Neck veins flat. Central venous catheter in place within the internal jugular on the right side. Cardiac: Tachycardic with regular rhythm. S1 and S2 are present with out murmur rubs or gallops. Capillary refill approximately 5 seconds in upper extremities. Skin temperature colder to the touch at distal extremities compared to chest. Radial pulses 1+ bilaterally and thready. Respiratory: Easy respiratory effort with symmetric expansion of the chest. Tachypnea appreciated. Lungs were grossly clear to auscultation bilaterally without crackles or wheezes. Abdominal: Abdomen was moderately distended, patient guarding. Minimal palpation did elicit pain; as such remainder of abdominal exam was deferred. : Wood catheter in place. Extremities: As above Results & Data Results & Data ([facility]) Vital Signs (Past 12 Hours) Vital Signs Temp Pulse Pulse Pulse Resp BP BP 10/30/20 16:15 36.4 C L 10/30/20 16:05 122 H 10/30/20 16:01 36.4 C L 118 H 25 H 102/55 L 10/30/20 16:00 118 H 24 102/55 L 10/30/20 15:57 36.4 C L 119 H 31 H 102/54 L 10/30/20 15:56 118 H 22 102/54 L 10/30/20 15:55 119 H 29 H 10/30/20 15:53 118 H 22 100/58 L 10/30/20 15:51 117 H 28 H 10/30/20 15:50 117 H 24 99/50 L 10/30/20 15:49 118 H 34 H 92/53 L 10/30/20 15:48 118 H 29 H 99/53 L 10/30/20 15:47 118 H 30 H 10/30/20 15:45 118 H 29 H 73/61 L 10/30/20 15:44 118 H 24 99/50 L 10/30/20 15:43 117 H 25 H 97/47 L 10/30/20 15:40 114 H 26 H 10/30/20 15:39 113 H 20 92/48 L 10/30/20 15:35 112 H 28 H 10/30/20 15:30 113 H 34 H 10/30/20 15:27 114 H 35 H 93/54 L 10/30/20 15:25 110 H 41 H 10/30/20 15:23 110 H 42 H 96/52 L 10/30/20 15:21 109 H 35 H 10/30/20 15:19 108 H 35 H 99/52 L 10/30/20 15:15 112 H 32 H 10/30/20 15:12 113 H 27 H 93/63 L 10/30/20 15:10 113 H 37 H 10/30/20 15:08 113 H 29 H 84/46 L 10/30/20 15:05 112 H 34 H 10/30/20 15:02 110 H 25 H 10/30/20 15:00 110 H 26 H 103/51 L 10/30/20 14:59 108 H 38 H 102/55 L 10/30/20 14:35 36.6 C 109 H 23 98/56 L 10/30/20 14:30 114 H 23 89/45 L 10/30/20 14:25 112 H 24 82/45 L 10/30/20 14:15 112 H 22 78/46 L 10/30/20 14:05 114 H 24 85/46 L 10/30/20 13:55 106 H 30 H 95/52 L 10/30/20 13:45 114 H 29 H 82/46 L 10/30/20 13:35 114 H 24 71/42 L 10/30/20 13:25 115 H 20 93/43 L 10/30/20 13:15 112 H 24 84/52 L 10/30/20 13:05 36.4 C L 112 H 16 84/43 L 10/30/20 12:55 113 H 20 96/57 L 10/30/20 12:45 108 H 14 97/58 L 10/30/20 12:35 112 H 16 84/49 L 10/30/20 12:29 36.6 C 122 H 19 91/48 L 10/30/20 10:37 37 C 104 H 18 123/79 10/30/20 07:35 37.2 C 100 H 18 106/67 Pulse Ox 10/30/20 16:15 10/30/20 16:05 98 10/30/20 16:01 99 10/30/20 16:00 99 10/30/20 15:57 97 10/30/20 15:56 99 10/30/20 15:55 98 10/30/20 15:53 99 10/30/20 15:51 98 10/30/20 15:50 99 10/30/20 15:49 98 10/30/20 15:48 98 10/30/20 15:47 99 10/30/20 15:45 100 10/30/20 15:44 97 10/30/20 15:43 98 10/30/20 15:40 97 10/30/20 15:39 98 10/30/20 15:35 98 10/30/20 15:30 100 10/30/20 15:27 99 10/30/20 15:25 100 10/30/20 15:23 100 10/30/20 15:21 100 10/30/20 15:19 100 10/30/20 15:15 99 10/30/20 15:12 99 10/30/20 15:10 99 10/30/20 15:08 98 10/30/20 15:05 97 10/30/20 15:02 100 10/30/20 15:00 99 10/30/20 14:59 97 10/30/20 14:35 98 10/30/20 14:30 99 10/30/20 14:25 98 10/30/20 14:15 99 10/30/20 14:05 99 10/30/20 13:55 97 10/30/20 13:45 98 10/30/20 13:35 97 10/30/20 13:25 97 10/30/20 13:15 97 10/30/20 13:05 97 10/30/20 12:55 95 10/30/20 12:45 99 10/30/20 12:35 96 10/30/20 12:29 95 10/30/20 10:37 96 10/30/20 07:35 95 10/30/20 15:52 10/30/20 15:52 Resident Activity Tracking Resident Involvement: Resident Care Provided Care Provided: Adult Hospital Medicine
--- NOTE | 2020-10-30 19:15 | Billing Data ---
Date of Service October 30, 2020 Coding Level of Care Code Critical Care 1st 30-74 mins Time Spent (min) 70
--- NOTE | 2020-10-30 22:02 | Gastroenterology Progress Note ---
Date of Service October 30, 2020 Assessment & Plan Admission and Anticipated Discharge Date Admission Date: October 29, 2020 Subjective Patient underwent EUS today with FNA of a very large Liver mass suspected HCC. Post procedure he reported diffuse abdominal pain while in recovery. Had tachycardia and hypotension which later improved with IV fluids. I was available immediately at the bedside, KUB showed no perforation. Hgb dropped from 13 to 8 so I suspected he has bleeding from the liver mass given large size and invasion of the liver capsule with no adequate tamponade. A stat CT scan was obtained which showed intraabdominal bleeding but no extravasation of contrast. His bleeding had likely stopped however decision made to transfer him a tertiary care center with IR availability in case of recurrent bleeding. I spoke to the patient and his and they agreed with the plan. Results & Data ([facility]) Vital Signs (Past 12 Hours) Vital Signs Temp Pulse Pulse Pulse Resp BP BP 10/30/20 16:15 36.4 C L 10/30/20 16:05 122 H 10/30/20 16:01 36.4 C L 118 H 25 H 102/55 L 10/30/20 16:00 118 H 24 102/55 L 10/30/20 15:57 36.4 C L 119 H 31 H 102/54 L 10/30/20 15:56 118 H 22 102/54 L 10/30/20 15:55 119 H 29 H 10/30/20 15:53 118 H 22 100/58 L 10/30/20 15:51 117 H 28 H 10/30/20 15:50 117 H 24 99/50 L 10/30/20 15:49 118 H 34 H 92/53 L 10/30/20 15:48 118 H 29 H 99/53 L 10/30/20 15:47 118 H 30 H 10/30/20 15:45 118 H 29 H 73/61 L 10/30/20 15:44 118 H 24 99/50 L 10/30/20 15:43 117 H 25 H 97/47 L 10/30/20 15:40 114 H 26 H 10/30/20 15:39 113 H 20 92/48 L 10/30/20 15:35 112 H 28 H 10/30/20 15:30 113 H 34 H 10/30/20 15:27 114 H 35 H 93/54 L 10/30/20 15:25 110 H 41 H 04/23/21 15:23 110 H 42 H 96/52 L 10/30/20 15:21 109 H 35 H 10/30/20 15:19 108 H 35 H 99/52 L 10/30/20 15:15 112 H 32 H 10/30/20 15:12 113 H 27 H 93/63 L 10/30/20 15:10 113 H 37 H 10/30/20 15:08 113 H 29 H 84/46 L 10/30/20 15:05 112 H 34 H 10/30/20 15:02 110 H 25 H 10/30/20 15:00 110 H 26 H 103/51 L 10/30/20 14:59 108 H 38 H 102/55 L 10/30/20 14:35 36.6 C 109 H 23 98/56 L 10/30/20 14:30 114 H 23 89/45 L 10/30/20 14:25 112 H 24 82/45 L 10/30/20 14:15 112 H 22 78/46 L 10/30/20 14:05 114 H 24 85/46 L 10/30/20 13:55 106 H 30 H 95/52 L 10/30/20 13:45 114 H 29 H 82/46 L 10/30/20 13:35 114 H 24 71/42 L 10/30/20 13:25 115 H 20 93/43 L 10/30/20 13:15 112 H 24 84/52 L 10/30/20 13:05 36.4 C L 112 H 16 84/43 L 10/30/20 12:55 113 H 20 96/57 L 10/30/20 12:45 108 H 14 97/58 L 10/30/20 12:35 112 H 16 84/49 L 10/30/20 12:29 36.6 C 122 H 19 91/48 L 10/30/20 10:37 37 C 104 H 18 123/79 Pulse Ox 10/30/20 16:15 10/30/20 16:05 98 10/30/20 16:01 99 10/30/20 16:00 99 10/30/20 15:57 97 10/30/20 15:56 99 10/30/20 15:55 98 10/30/20 15:53 99 10/30/20 15:51 98 10/30/20 15:50 99 10/30/20 15:49 98 10/30/20 15:48 98 10/30/20 15:47 99 10/30/20 15:45 100 10/30/20 15:44 97 10/30/20 15:43 98 10/30/20 15:40 97 10/30/20 15:39 98 10/30/20 15:35 98 10/30/20 15:30 100 10/30/20 15:27 99 10/30/20 15:25 100 10/30/20 15:23 100 10/30/20 15:21 100 10/30/20 15:19 100 10/30/20 15:15 99 10/30/20 15:12 99 10/30/20 15:10 99 10/30/20 15:08 98 10/30/20 15:05 97 10/30/20 15:02 100 10/30/20 15:00 99 10/30/20 14:59 97 10/30/20 14:35 98 10/30/20 14:30 99 10/30/20 14:25 98 10/30/20 14:15 99 10/30/20 14:05 99 10/30/20 13:55 97 10/30/20 13:45 98 10/30/20 13:35 97 10/30/20 13:25 97 10/30/20 13:15 97 10/30/20 13:05 97 10/30/20 12:55 95 10/30/20 12:45 99 10/30/20 12:35 96 10/30/20 12:29 95 10/30/20 10:37 96
== END 2020-10-30 17:00 | disposition short-term general hospital (02) | DRG 420 ==
LOC: ED 16:02 → SUATTDRO 22:52 → 3N 22:52 → 1E 10-30 15:12